=== PATIENT | female | born 1950 | race Caucasian/White ===

== ENCOUNTER 2018-01-19 10:41 | Inpatient (IN) | payer MEDICARE, BC ==
[2018-01-19] MEDS ORDERED: Amiodarone 200 MG Tab PO SCH (14:00)
[2018-01-19] MEDS: Furosemide 40 MG Tab PO SCH (16:29)
[2018-01-19] MEDS ORDERED: Warfarin Sliding Scale PO SCH (17:30)
--- NOTE | 2018-01-19 17:56 | PCM.HP ---
H&P History of Present Illness - General Date of Service: 01/19/18 Admit Problem/Dx: Admission Diagnosis/Problem Admission Diagnosis/Problem Weakness Source of Information: Patient, Old Records History Limitations: Reports: No Limitations - History of Present Illness Initial Comments - Free Text/Narative: This is a 67-year-old female patient that was transferred from 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 Mcclelland. Patient is transferred down here for rehabilitation. Her only concern is she's cough and it hurts her chest which she likes him for that. She states she had a chest x- ray yesterday and no one said anything about it. She denies fevers, chills. She has chest pain from her surgery. - Related Data Allergies/Adverse Reactions: Allergies Allergy/AdvReac Type Severity Reaction Status Date / Time flecainide Allergy Hypotension Verified 05/12/16 06:47 lisinopril Allergy Cough Verified 05/12/16 06:47 Home Medications: Home Meds Simvastatin [Zocor] 20 mg PO DAILY 05/12/15 [History] Ascorbate Calcium [Vitamin C] 500 mg PO DAILY 05/12/16 [History] Albuterol [Ventolin HFA] 2 puff IH Q4H PRN 01/19/18 [History] Amiodarone [Cordarone] 200 mg PO Q8H 01/19/18 [History] Anastrozole [Arimidex] 1 mg PO DAILY 01/19/18 [History] Carvedilol [Coreg] 6.25 mg PO Q12H 01/19/18 [History] Cholecalciferol (Vitamin D3) [Vitamin D3] 1,000 unit PO DAILY 01/19/18 [History] Docusate Sodium [Dok] 250 mg PO DAILY 01/19/18 [History] Enoxaparin Sodium [Lovenox] 100 mg SUBCUT Q12H 01/19/18 [History] Fluticasone/Vilanterol [Breo Ellipta 100-25 MCG Inhalation Kit] 1 puff IH DAILY 01/19/18 [History] Furosemide 40 mg PO BID@08,14 01/19/18 [History] Hydrocodone/Acetaminophen [[place] 10-325 Tablet] 1 tab PO Q4H PRN 01/19/18 [ History] Insulin Glarg,Human.Rec.Analog [Lantus] 45 units SUBCUT BEDTIME 01/19/18 [ History] Magnesium Oxide 400 mg PO DAILY 01/19/18 [History] Metolazone 2.5 mg PO DAILY@0600 01/19/18 [History] Multivitamin with Minerals [Multivitamins with Minerals] 1 tab PO DAILY [History] Omeprazole 20 mg PO QAM 01/19/18 [History] Warfarin Sliding Scale [Coumadin Sliding Scale] 1 ea PO ASDIRECTED 01/19/18 [ History] Past Medical History Cardiovascular History: Reports: Afib, Heart Failure, Heart Valve Replacement, High Cholesterol, Hypertension, Pacemaker, Other (See Below) (Hypertension, hyperlipidemia) Neurological History: Reports: Other (See Below) (Peripheral neuropathy) Endocrine/Metabolic History: Reports: Diabetes, Type II, Other (See Below) ( Thyroid enlargement) Oncologic (Cancer) History: Reports: Breast Social & Family History - Tobacco Use Smoking Status *Q: Never Smoker Second Hand Smoke Exposure: No - Caffeine Use Caffeine Use: Reports: Coffee - Alcohol Use Days Per Week of Alcohol Use: 3 Number of Drinks Per Day: 2 Total Drinks Per Week: 6 - Recreational Drug Use Recreational Drug Use: No H&P Review of Systems - Review of Systems: Review Of Systems: See Below General: Reports: No Symptoms HEENT: Reports: No Symptoms Pulmonary: Denies: Shortness of Breath, Wheezing, Cough, Sputum Cardiovascular: Reports: Chest Pain. Denies: Palpitations, Orthopnea, PND, Edema Gastrointestinal: Reports: No Symptoms Genitourinary: Reports: No Symptoms Musculoskeletal: Reports: No Symptoms Skin: Reports: No Symptoms Psychiatric: Reports: No Symptoms Neurological: Reports: No Symptoms Hematologic/Lymphatic: Reports: No Symptoms Immunologic: Reports: No Symptoms Exam - Exam Exam: See Below - Vital Signs Vital Signs: Last Vital Signs Temp 97.4 F 01/19/18 13:15 Pulse 85 01/19/18 13:15 Resp 16 01/19/18 13:15 BP 111/66 01/19/18 13:15 Pulse Ox 94 L 01/19/18 13:15 Weight: 246 lb 3.2 oz - Exam General: Alert, Oriented, Cooperative HEENT: Hearing Intact, Posterior Pharynx Clear, TMs Clear Neck: Supple, Trachea Midline Lungs: Clear to Auscultation, Normal Respiratory Effort. No: Crackles, Rales, Rhonchi, Rub Cardiovascular: Regular Rate, Regular Rhythm, Normal S1, Normal S2, Systolic Murmur GI/Abdominal Exam: Normal Bowel Sounds, Soft, No Organomegaly, No Distention, No Abnormal Bruit, No Mass Back Exam: Normal Inspection Extremities: Normal Inspection, Normal Range of Motion, Non-Tender, No Pedal Edema Skin: Warm, Dry, Intact Neurological: Normal Speech, Normal Tone Neuro Extensive - Mental Status: Oriented x3, Normal Mood/Affect, Normal Cognition, Memory Intact *Q Meaningful Use (ADM) - VTE *Q VTE Criteria *Q: - Stroke *Q Stroke Criteria *Q: - AMI *Q AMI Criteria *Q: - Problem List (1) Status post aortic valve replacement Status: Acute Current Visit: Yes (2) Diabetes type 2, controlled SNOMED Code(s): 76827394 ICD Code: E11.9 - TYPE 2 DIABETES MELLITUS WITHOUT COMPLICATIONS Status: Acute Current Visit: Yes Problem List Initiated/Reviewed/Updated: Yes Orders Last 24hrs: Active Orders 24 hr Category Date Time Status Admission Status [Patient Status] [ADT] Routine ADT 01/19/18 12:37 Active Activity as Tolerated [RC] .Routine Care 01/19/18 12:37 Active Blood Glucose Check, Bedside [RC] QIDACANDBED Care 01/19/18 16:22 Active IS (RT) [RT Incentive Spirometry] [RC] Q2HWA Care 01/19/18 17:21 Active Wound Care [RC] 00,08,16 Care 01/19/18 12:37 Active OT Evaluation and Treatment [CONS] Routine Cons 01/19/18 13:00 Active PT Evaluation and Treatment [CONS] Routine Cons 01/19/18 13:00 Active Carbohydrate Counting [Consistent Carbohydrate Diet] [ Diet 01/19/18 Dinner Active DIET] Cardiac Diet [Heart Healthy Diet] [DIET] Diet 01/19/18 Dinner Active BASIC METABOLIC PANEL,BMP [CHEM] Routine Lab 02/22/18 06:00 Ordered CBC WITH AUTO DIFF [HEME] Routine Lab 02/22/18 06:00 Ordered INR,PT,PROTHROMBIN TIME [COAG] Routine Lab 01/20/18 06:00 Ordered Acetaminophen/HYDROcodone [[place] 325-10 MG] Med 01/19/18 17:30 Active 1 tab PO Q4H PRN Albuterol [Ventolin HFA] Med 01/19/18 17:30 Ordered DOSE gm INH Q4H PRN Amiodarone [Cordarone] Med 01/19/18 14:00 Active 200 mg PO Q8H Amiodarone [Cordarone] Med 01/19/18 17:30 Ordered 200 mg PO Q8H Anastrozole [Arimidex] Med 01/20/18 09:00 Active 1 mg PO DAILY Ascorbate Calcium [Vitamin C] Med 01/20/18 09:00 Ordered 500 mg PO DAILY Carvedilol [Coreg] Med 01/19/18 17:30 Ordered 6.25 mg PO Q12H Cholecalciferol (Vitamin D3) [Vitamin D3] Med 01/20/18 09:00 Active 1,000 units PO DAILY Docusate Sodium [Dok] Med 01/20/18 09:00 Active 250 mg PO DAILY Enoxaparin [Lovenox] Med 01/19/18 17:30 Ordered 100 mg SUBCUT Q12H Fluticasone/Vilanterol [Breo Ellipta 100-25 MCG Med 01/20/18 09:00 Ordered Inhalation Kit] 1 puff IH DAILY Furosemide [Lasix] Med 01/20/18 08:00 Active 40 mg PO BID@08,14 Furosemide [Lasix] Med 01/19/18 15:00 Active 40 mg PO BIDDIURETIC Insulin Glarg,Human.Rec.Analog [Lantus] Med 01/19/18 21:00 Ordered 45 units SUBCUT BEDTIME Magnesium Oxide Med 01/20/18 09:00 Ordered 400 mg PO DAILY Metolazone [Zaroxolyn] Med 01/20/18 06:00 Ordered 2.5 mg PO DAILY@0600 Multivitamin with Minerals [Multivitamins with Minerals Med 01/20/18 09:00 Ordered ] 1 tab PO DAILY Omeprazole [Omeprazole] Med 01/20/18 06:00 Ordered 20 mg PO QAM Simvastatin [Zocor] Med 01/20/18 09:00 Ordered 20 mg PO DAILY Warfarin Sliding Scale [Coumadin Sliding Scale] Med 01/19/18 17:30 Ordered 1 each PO ASDIRECTED Code Status [Resuscitation Status] Routine Resus Stat 01/19/18 14:24 Ordered Medication Orders Hydrocodone Bitart/Acetaminophen ([place] 325-10 Mg) 1 tab PO Q4H PRN PRN Reason: MODERATE PAIN Albuterol (Ventolin Hfa) gm INH Q4H PRN PRN Reason: SHORTNESS OF BREATH/WHEEZING Amiodarone HCl (Cordarone) 200 mg PO Q8H [facility] Stop: 01/22/18 14:01 Last Admin: 01/19/18 16:29 Dose: 200 mg Amiodarone HCl (Cordarone) 200 mg PO Q8H [facility] Anastrozole (Arimidex) 1 mg PO DAILY [facility] Carvedilol (Coreg) 6.25 mg PO Q12H [facility] Cholecalciferol (Vitamin D3) 1,000 units PO DAILY [facility] Docusate Sodium (Dok) 250 mg PO DAILY [facility] Enoxaparin Sodium (Lovenox) 100 mg SUBCUT Q12H [facility] Furosemide (Lasix) 40 mg PO BIDDIURETIC [facility] Last Admin: 01/19/18 16:29 Dose: 40 mg Furosemide (Lasix) 40 mg PO BID@08,14 [facility] Magnesium Oxide (Magnesium Oxide) 400 mg PO DAILY [facility] Metolazone (Zaroxolyn) 2.5 mg PO DAILY@0600 [facility] Non-Formulary Medication (Ascorbate Calcium [Vitamin C]) 500 mg PO DAILY [facility] Non-Formulary Medication (Fluticasone/Vilanterol [Breo Ellipta 100-25 Mcg Inhalation Kit]) 1 puff IH DAILY [facility] Non-Formulary Medication (Insulin Glarg,Human.Rec.Analog [Lantus]) 45 units SUBCUT BEDTIME [facility] Non-Formulary Medication (Multivitamin With Minerals [Multivitamins With Minerals]) 1 tab PO DAILY [facility] Non-Formulary Medication (Omeprazole [Omeprazole]) 20 mg PO QAM [facility] Simvastatin (Zocor) 20 mg PO DAILY [facility] Warfarin Sodium (Coumadin Sliding Scale) 1 each PO ASDIRECTED [facility] Assessment/Plan Comment:: 1. Admit to swing bed. See swing bed orders. 2. Robitussin for when necessary cough. 3. PT/OT. 4. Cardiac diet.
[2018-01-19] MEDS: Amiodarone 200 MG Tab PO SCH (18:46)
[2018-01-19] MEDS: Acetaminophen/HYDROcodone 325-10 MG Tab PO PRN (18:51)
[2018-01-19] MEDS: guaiFENesin 100 MG/5 ML Soln 5 ML UD Cup PO PRN (18:51)
[2018-01-19] MEDS: Albuterol 8 GM Inhaler INH PRN (19:35)
[2018-01-19] MEDS: Insulin Detemir 100 Units/ML 3 ML Pen SUBCUT SCH (21:32)
[2018-01-19] MEDS: Carvedilol 6.25 MG Tab PO SCH (21:34)
[2018-01-19] MEDS ORDERED: Enoxaparin 100 MG/1 ML Syringe SUBCUT SCH (22:00)
[2018-01-20] MEDS: Acetaminophen/HYDROcodone 325-10 MG Tab PO PRN ×5 (01:10→20:13)
[2018-01-20] MEDS: Amiodarone 200 MG Tab PO SCH ×3 (02:21→17:27)
[2018-01-20] MEDS: Pantoprazole 40 MG Tab.CR PO SCH (06:17)
[2018-01-20] MEDS: Metolazone 2.5 MG Tab PO SCH (06:17)
[2018-01-20] MEDS ORDERED: Formoterol/Mometasone 100-5 MCG 8.8 GM Inhaler IH SCH (09:00)
[2018-01-20] MEDS: Furosemide 40 MG Tab PO SCH ×3 (09:09→14:48)
[2018-01-20] MEDS: Docusate Sodium 250 MG Cap PO SCH (09:10)
[2018-01-20] MEDS: Magnesium Oxide 400 MG Tab PO SCH (09:10)
[2018-01-20] MEDS: Formoterol/Mometasone 100-5 MCG 8.8 GM Inhaler IH SCH ×2 (09:10→21:04)
[2018-01-20] MEDS: Ascorbic Acid 500 MG Tab PO SCH (09:11)
[2018-01-20] MEDS: Simvastatin 20 MG Tab PO SCH (09:11)
[2018-01-20] MEDS: Multivitamin Tab PO SCH (09:11)
[2018-01-20] MEDS: Cholecalciferol (Vitamin D3) 1,000 Unit Tab PO SCH (09:11)
[2018-01-20] MEDS: Albuterol 8 GM Inhaler INH PRN (09:12)
[2018-01-20] MEDS: Anastrozole 1 MG Tab PO SCH (09:14)
[2018-01-20] MEDS: Carvedilol 6.25 MG Tab PO SCH ×2 (10:32→21:15)
[2018-01-20] MEDS: Enoxaparin 100 MG/1 ML Syringe SUBCUT SCH ×2 (10:53→21:23)
[2018-01-20] MEDS: guaiFENesin 100 MG/5 ML Soln 5 ML UD Cup PO PRN ×2 (15:33→21:30)
[2018-01-20] MEDS ORDERED: Warfarin 10 MG Tab PO ONE (16:00)
[2018-01-20] MEDS: Insulin Detemir 100 Units/ML 3 ML Pen SUBCUT SCH (21:08)
[2018-01-21] MEDS: Acetaminophen/HYDROcodone 325-10 MG Tab PO PRN ×4 (01:05→21:15)
[2018-01-21] MEDS: Amiodarone 200 MG Tab PO SCH ×3 (02:10→17:07)
[2018-01-21] MEDS: Pantoprazole 40 MG Tab.CR PO SCH (06:07)
[2018-01-21] MEDS: Metolazone 2.5 MG Tab PO SCH (06:07)
[2018-01-21] MEDS: Furosemide 40 MG Tab PO SCH ×2 (07:48→14:11)
[2018-01-21] MEDS: Docusate Sodium 250 MG Cap PO SCH (09:28)
[2018-01-21] MEDS: Anastrozole 1 MG Tab PO SCH (09:28)
[2018-01-21] MEDS: Magnesium Oxide 400 MG Tab PO SCH (09:29)
[2018-01-21] MEDS: Multivitamin Tab PO SCH (09:29)
[2018-01-21] MEDS: Formoterol/Mometasone 100-5 MCG 8.8 GM Inhaler IH SCH ×2 (09:29→21:00)
[2018-01-21] MEDS: Simvastatin 20 MG Tab PO SCH (09:30)
[2018-01-21] MEDS: Cholecalciferol (Vitamin D3) 1,000 Unit Tab PO SCH (09:30)
[2018-01-21] MEDS: Ascorbic Acid 500 MG Tab PO SCH (09:30)
[2018-01-21] MEDS: Carvedilol 6.25 MG Tab PO SCH ×2 (09:31→21:02)
[2018-01-21] MEDS ORDERED: Warfarin 2.5 MG Tab PO ONE (16:00)
[2018-01-21] MEDS: Insulin Detemir 100 Units/ML 3 ML Pen SUBCUT SCH (21:01)
[2018-01-21] MEDS: guaiFENesin 100 MG/5 ML Soln 5 ML UD Cup PO PRN (21:12)
[2018-01-22] MEDS: Acetaminophen/HYDROcodone 325-10 MG Tab PO PRN ×5 (01:15→23:45)
[2018-01-22] MEDS: Amiodarone 200 MG Tab PO SCH ×3 (01:15→19:19)
[2018-01-22] MEDS: Metolazone 2.5 MG Tab PO SCH (06:29)
[2018-01-22] MEDS: Pantoprazole 40 MG Tab.CR PO SCH (06:29)
[2018-01-22] MEDS: Furosemide 40 MG Tab PO SCH ×2 (09:04→13:03)
[2018-01-22] MEDS: Anastrozole 1 MG Tab PO SCH (09:04)
[2018-01-22] MEDS: Formoterol/Mometasone 100-5 MCG 8.8 GM Inhaler IH SCH ×2 (09:05→20:37)
[2018-01-22] MEDS: Docusate Sodium 250 MG Cap PO SCH (09:05)
[2018-01-22] MEDS: Cholecalciferol (Vitamin D3) 1,000 Unit Tab PO SCH (09:06)
[2018-01-22] MEDS: Ascorbic Acid 500 MG Tab PO SCH (09:06)
[2018-01-22] MEDS: Multivitamin Tab PO SCH (09:07)
[2018-01-22] MEDS: Magnesium Oxide 400 MG Tab PO SCH (09:07)
[2018-01-22] MEDS: Simvastatin 20 MG Tab PO SCH (09:07)
[2018-01-22] MEDS: Polyethylene Glycol 3350 Powder 17 GM Packet PO PRN (10:13)
[2018-01-22] MEDS: Carvedilol 6.25 MG Tab PO SCH ×2 (10:14→21:05)
[2018-01-22] MEDS: Albuterol 8 GM Inhaler INH PRN (13:06)
[2018-01-22] MEDS: Enoxaparin 100 MG/1 ML Syringe SUBCUT SCH (15:37)
[2018-01-22] MEDS ORDERED: Warfarin 5 MG Tab PO ONE (16:00)
[2018-01-22] MEDS: guaiFENesin 100 MG/5 ML Soln 5 ML UD Cup PO PRN (19:22)
[2018-01-22] MEDS: Insulin Detemir 100 Units/ML 3 ML Pen SUBCUT SCH (20:37)
[2018-01-23] MEDS: Pantoprazole 40 MG Tab.CR PO SCH (05:06)
[2018-01-23] MEDS: Metolazone 2.5 MG Tab PO SCH (05:06)
[2018-01-23] MEDS: Acetaminophen/HYDROcodone 325-10 MG Tab PO PRN (06:55)
[2018-01-23] MEDS ORDERED: Magnesium Hydroxide 400 MG/5 ML Susp 30 ML Cup PO PRN (07:33)
[2018-01-23] MEDS ORDERED: Acetaminophen 325 MG Tab PO PRN ×2 (07:36→22:01)
[2018-01-23] MEDS: Furosemide 40 MG Tab PO SCH ×2 (08:42→13:15)
[2018-01-23] MEDS: Ascorbic Acid 500 MG Tab PO SCH (08:42)
[2018-01-23] MEDS: Multivitamin Tab PO SCH (08:43)
[2018-01-23] MEDS: Magnesium Oxide 400 MG Tab PO SCH (08:43)
[2018-01-23] MEDS: Cholecalciferol (Vitamin D3) 1,000 Unit Tab PO SCH (08:44)
[2018-01-23] MEDS: Formoterol/Mometasone 100-5 MCG 8.8 GM Inhaler IH SCH ×2 (08:44→20:44)
[2018-01-23] MEDS: Docusate Sodium 250 MG Cap PO SCH (08:44)
[2018-01-23] MEDS: Anastrozole 1 MG Tab PO SCH (08:45)
[2018-01-23] MEDS: Simvastatin 20 MG Tab PO SCH (08:45)
[2018-01-23] MEDS: Carvedilol 6.25 MG Tab PO SCH ×2 (09:06→21:19)
[2018-01-23] MEDS ORDERED: Potassium Chloride 20 MEQ Tab.ER PO ONE (09:13)
[2018-01-23] MEDS: Potassium Chloride 20 MEQ Tab.ER PO SCH ×2 (13:15→20:49)
[2018-01-23] MEDS ORDERED: Warfarin 5 MG Tab PO ONE (16:00)
[2018-01-23] MEDS: Insulin Detemir 100 Units/ML 3 ML Pen SUBCUT SCH (20:49)
[2018-01-23] MEDS: guaiFENesin 100 MG/5 ML Soln 5 ML UD Cup PO PRN (20:50)
[2018-01-24] MEDS: Metolazone 2.5 MG Tab PO SCH (06:30)
[2018-01-24] MEDS: Pantoprazole 40 MG Tab.CR PO SCH (06:30)
[2018-01-24] MEDS: Furosemide 40 MG Tab PO SCH ×2 (09:24→15:15)
[2018-01-24] MEDS: Anastrozole 1 MG Tab PO SCH (09:24)
[2018-01-24] MEDS: Formoterol/Mometasone 100-5 MCG 8.8 GM Inhaler IH SCH ×2 (09:24→20:22)
[2018-01-24] MEDS: Docusate Sodium 250 MG Cap PO SCH (09:24)
[2018-01-24] MEDS: Potassium Chloride 20 MEQ Tab.ER PO SCH ×3 (09:25→20:22)
[2018-01-24] MEDS: Carvedilol 6.25 MG Tab PO SCH ×2 (09:25→22:00)
[2018-01-24] MEDS: Cholecalciferol (Vitamin D3) 1,000 Unit Tab PO SCH (09:25)
[2018-01-24] MEDS: Magnesium Oxide 400 MG Tab PO SCH (09:25)
[2018-01-24] MEDS: Simvastatin 20 MG Tab PO SCH (09:25)
[2018-01-24] MEDS: Multivitamin Tab PO SCH (09:26)
[2018-01-24] MEDS: traMADol 50 MG Tab PO PRN (09:26)
[2018-01-24] MEDS: Ascorbic Acid 500 MG Tab PO SCH (09:26)
[2018-01-24] MEDS: Spironolactone 50 MG Tab PO SCH (09:32)
--- NOTE | 2018-01-24 10:01 | PN ---
DATE SEEN: 01/24/2018 CHIEF COMPLAINT: 1. Alteration of mental status. 2. Hypokalemia. HISTORY OF PRESENT ILLNESS: A 67-year-old female who was in swing bed for rehab after an aortic valve repair. Over the last couple nights, she had complained of some hallucinations that were noted by the nursing staff. Yesterday, I ordered electrolyte panel that showed potassium of 2.5, and despite replacement she is still at 2.5 today. She is on Lasix 40 mg twice a day and metolazone 2.5 mg a day. I also stopped hydrocodone, which she was taking for chest wall pain after the surgery and she complains of pain around the chest wall area on the right side. REVIEW OF SYSTEMS: She has no fever or chills. No headaches. She feels very weak. SOCIAL HISTORY: Does not smoke. PAST MEDICAL HISTORY: Please see the [email or web address] and Medicare problem list. PHYSICAL EXAMINATION: GENERAL: She is not in distress. She appears lethargic. VITAL SIGNS: Latest blood pressure is 113/60 and pulse is 81. She has a temp of 97.3. ENT: Negative. Head, normal size. NECK: Supple. CHEST: Chest wall appeared with normal thoracotomy scar. No signs of infection. LUNGS: End- expiratory rhonchi. MENTAL STATUS: Alert. EXTREMITIES: Marked nonpitting peripheral edema. LABORATORY DATA: As mentioned above, 2.5 was the potassium and sodium was 132. IMPRESSION: 1. Chest wall pain, status post mitral valve repair and aortic valve repair. 2. Delirium, unknown reason. 3. Hypokalemia. 4. Congestive heart failure. PLAN: 1. Continue potassium replacement up to 60 mEq a day. 2. Discontinue metolazone in favor of Aldactone 50 mg once a day. 3. Start Ultram 1 tablet 50 mg 3 times a day p.r.n. for chest wall pain. 4. Continue physical therapy and rehab. 5. Check electrolytes daily. 6. Sodium is also about 132 and I recommend restricting free water to less than a 1000 a day. /[id number] CHARO/MARCIAL
[2018-01-24] MEDS: Polyethylene Glycol 3350 Powder 17 GM Packet PO PRN (15:17)
[2018-01-24] MEDS: Warfarin 5 MG Tab PO SCH (16:21)
[2018-01-24] MEDS ORDERED: Bisacodyl 10 MG Supp RECTAL PRN (16:35)
[2018-01-24] MEDS: Insulin Detemir 100 Units/ML 3 ML Pen SUBCUT SCH (20:29)
[2018-01-25] MEDS ORDERED: Sodium Phosphate,Monobasic/Sodium Phosphate,Dibasic Enema 133 ML Bottle RECTAL ONE (02:00)
[2018-01-25] MEDS: Pantoprazole 40 MG Tab.CR PO SCH (05:56)
[2018-01-25] MEDS: Spironolactone 50 MG Tab PO SCH (08:59)
[2018-01-25] MEDS: Cholecalciferol (Vitamin D3) 1,000 Unit Tab PO SCH (08:59)
[2018-01-25] MEDS: Potassium Chloride 20 MEQ Tab.ER PO SCH ×3 (08:59→20:45)
[2018-01-25] MEDS: Multivitamin Tab PO SCH (08:59)
[2018-01-25] MEDS: Magnesium Oxide 400 MG Tab PO SCH (08:59)
[2018-01-25] MEDS: Simvastatin 20 MG Tab PO SCH (08:59)
[2018-01-25] MEDS: Ascorbic Acid 500 MG Tab PO SCH (08:59)
[2018-01-25] MEDS: Docusate Sodium 250 MG Cap PO SCH (08:59)
[2018-01-25] MEDS: Anastrozole 1 MG Tab PO SCH (08:59)
[2018-01-25] MEDS: Furosemide 40 MG Tab PO SCH ×2 (08:59→13:28)
[2018-01-25] MEDS: Formoterol/Mometasone 100-5 MCG 8.8 GM Inhaler IH SCH ×2 (09:00→20:45)
[2018-01-25] MEDS: Carvedilol 6.25 MG Tab PO SCH ×2 (09:00→21:11)
[2018-01-25] MEDS: Warfarin 5 MG Tab PO SCH (16:36)
[2018-01-25] MEDS: Insulin Detemir 100 Units/ML 3 ML Pen SUBCUT SCH (20:45)
[2018-01-26] MEDS: Pantoprazole 40 MG Tab.CR PO SCH (05:51)
[2018-01-26] MEDS: Furosemide 40 MG Tab PO SCH ×2 (07:42→13:40)
[2018-01-26] MEDS: Spironolactone 50 MG Tab PO SCH (08:16)
[2018-01-26] MEDS: Docusate Sodium 250 MG Cap PO SCH (08:17)
[2018-01-26] MEDS: Cholecalciferol (Vitamin D3) 1,000 Unit Tab PO SCH (08:17)
[2018-01-26] MEDS: Ascorbic Acid 500 MG Tab PO SCH (08:17)
[2018-01-26] MEDS: Multivitamin Tab PO SCH (08:17)
[2018-01-26] MEDS: Potassium Chloride 20 MEQ Tab.ER PO SCH ×3 (08:17→21:07)
[2018-01-26] MEDS: Formoterol/Mometasone 100-5 MCG 8.8 GM Inhaler IH SCH ×2 (08:17→21:07)
[2018-01-26] MEDS: Anastrozole 1 MG Tab PO SCH (08:17)
[2018-01-26] MEDS: Simvastatin 20 MG Tab PO SCH (08:17)
[2018-01-26] MEDS: Magnesium Oxide 400 MG Tab PO SCH (08:17)
[2018-01-26] MEDS: Carvedilol 6.25 MG Tab PO SCH ×2 (10:10→21:09)
[2018-01-26] MEDS: Warfarin 5 MG Tab PO SCH (16:33)
[2018-01-26] MEDS: Insulin Detemir 100 Units/ML 3 ML Pen SUBCUT SCH (21:11)
[2018-01-26] MEDS: hydrOXYzine HCl 25 MG Tab PO PRN (23:59)
[2018-01-27] MEDS: Pantoprazole 40 MG Tab.CR PO SCH (05:11)
[2018-01-27] MEDS: Furosemide 40 MG Tab PO SCH ×2 (08:28→14:44)
[2018-01-27] MEDS: Multivitamin Tab PO SCH (08:28)
[2018-01-27] MEDS: Cholecalciferol (Vitamin D3) 1,000 Unit Tab PO SCH (08:29)
[2018-01-27] MEDS: Simvastatin 20 MG Tab PO SCH (08:29)
[2018-01-27] MEDS: Magnesium Oxide 400 MG Tab PO SCH (08:29)
[2018-01-27] MEDS: Anastrozole 1 MG Tab PO SCH (08:29)
[2018-01-27] MEDS: Docusate Sodium 250 MG Cap PO SCH (08:29)
[2018-01-27] MEDS: Formoterol/Mometasone 100-5 MCG 8.8 GM Inhaler IH SCH ×2 (08:29→20:08)
[2018-01-27] MEDS: Ascorbic Acid 500 MG Tab PO SCH (08:29)
[2018-01-27] MEDS: Spironolactone 50 MG Tab PO SCH (08:29)
[2018-01-27] MEDS: Potassium Chloride 20 MEQ Tab.ER PO SCH ×3 (08:30→20:09)
[2018-01-27] MEDS ORDERED: Metolazone 2.5 MG Tab PO ONE (09:15)
[2018-01-27] MEDS: Carvedilol 6.25 MG Tab PO SCH ×2 (10:47→21:15)
[2018-01-27] MEDS: Warfarin 5 MG Tab PO SCH (15:39)
[2018-01-27] MEDS: Insulin Detemir 100 Units/ML 3 ML Pen SUBCUT SCH (20:11)
[2018-01-27] MEDS: hydrOXYzine HCl 25 MG Tab PO PRN (21:18)
[2018-01-28] MEDS: Pantoprazole 40 MG Tab.CR PO SCH (04:59)
[2018-01-28] MEDS: Furosemide 40 MG Tab PO SCH ×2 (08:17→14:21)
[2018-01-28] MEDS: Docusate Sodium 250 MG Cap PO SCH (08:59)
[2018-01-28] MEDS: Spironolactone 50 MG Tab PO SCH (08:59)
[2018-01-28] MEDS: Anastrozole 1 MG Tab PO SCH (08:59)
[2018-01-28] MEDS: Formoterol/Mometasone 100-5 MCG 8.8 GM Inhaler IH SCH ×2 (08:59→20:20)
[2018-01-28] MEDS: Multivitamin Tab PO SCH (09:00)
[2018-01-28] MEDS: Magnesium Oxide 400 MG Tab PO SCH (09:00)
[2018-01-28] MEDS: Cholecalciferol (Vitamin D3) 1,000 Unit Tab PO SCH (09:00)
[2018-01-28] MEDS: Ascorbic Acid 500 MG Tab PO SCH (09:00)
[2018-01-28] MEDS: Simvastatin 20 MG Tab PO SCH (09:00)
[2018-01-28] MEDS: Potassium Chloride 20 MEQ Tab.ER PO SCH ×3 (09:00→20:20)
[2018-01-28] MEDS: Carvedilol 6.25 MG Tab PO SCH ×2 (10:33→21:26)
[2018-01-28] MEDS: traMADol 50 MG Tab PO PRN (10:37)
[2018-01-28] MEDS ORDERED: Warfarin 5 MG, Warfarin 2.5 MG PO SCH ×2 (16:00)
--- NOTE | 2018-01-28 19:46 | PCM.PN ---
- General Info Date of Service: 01/28/18 Subjective Update: Patient is a 67-year-old female status post multiple valves replaced/repaired in [place] admitted here for swing bed rehabilitation on 01/19/18. She is doing well. Pain is well controlled. She has significant pedal edema from systolic congestive heart failure due to her valvular disease which has improved somewhat over the last few days. She's not having any shortness of breath. No nausea, vomiting, or diarrhea. She is interested in getting off insulin and back on her oral agents. Hemoglobin A1c was 8.4% in November on glipizide and metformin both twice a day. Glipizide was 5 mg and metformin 1000 mg. - Patient Data Vitals - Most Recent: Last Vital Signs Temp 36.6 C 01/28/18 08:00 Pulse 86 01/28/18 08:00 Resp 16 01/28/18 08:00 BP 105/58 L 01/28/18 10:33 Pulse Ox 95 01/28/18 08:00 Weight - Most Recent: 103.873 kg Lab Results Last 24 Hours: Laboratory Results - last 24 hr 01/27/18 01/28/18 01/28/18 Range/Units 20:07 04:58 06:50 PT 30.2 H (8.7-11.1) INR 2.93 H (0.89-1.13) Sodium (135-145) mmol/L Potassium (3.5-5.3) mmol/L Chloride (100-110) mmol/L Carbon Dioxide (21-32) mmol/L BUN (7-18) mg/dL Creatinine (0.55-1.02) mg/dL Est Cr Clr Drug Dosing mL/min Estimated GFR (MDRD) (>60) BUN/Creatinine Ratio (9-20) Glucose (80-116) mg/dL POC Glucose 284 H 153 H D (80-116) mg/dL Calcium (8.6-10.2) mg/dL NT-Pro-B Natriuret Pep (<=125) pg/mL 01/28/18 01/28/18 01/28/18 Range/Units 06:50 06:50 11:15 PT (8.7-11.1) INR (0.89-1.13) Sodium 137 (135-145) mmol/L Potassium 3.4 L (3.5-5.3) mmol/L Chloride 95 L (100-110) mmol/L Carbon Dioxide 33 H (21-32) mmol/L BUN 31 H (7-18) mg/dL Creatinine 1.1 H (0.55-1.02) mg/dL Est Cr Clr Drug Dosing 51.15 mL/min Estimated GFR (MDRD) 49 L (>60) BUN/Creatinine Ratio 28.2 H (9-20) Glucose 154 H (80-116) mg/dL POC Glucose 286 H D (80-116) mg/dL Calcium 9.3 (8.6-10.2) mg/dL NT-Pro-B Natriuret Pep 5337 H* (<=125) pg/mL 01/28/18 Range/Units 17:13 PT (8.7-11.1) INR (0.89-1.13) Sodium (135-145) mmol/L Potassium (3.5-5.3) mmol/L Chloride (100-110) mmol/L Carbon Dioxide (21-32) mmol/L BUN (7-18) mg/dL Creatinine (0.55-1.02) mg/dL Est Cr Clr Drug Dosing mL/min Estimated GFR (MDRD) (>60) BUN/Creatinine Ratio (9-20) Glucose (80-116) mg/dL POC Glucose 232 H (80-116) mg/dL Calcium (8.6-10.2) mg/dL NT-Pro-B Natriuret Pep (<=125) pg/mL Med Orders - Current: Current Medications Albuterol (Ventolin Hfa) 0 gm INH Q4H PRN PRN Reason: SHORTNESS OF BREATH/WHEEZING Last Admin: 01/22/18 13:06 Dose: 2 puff Anastrozole (Arimidex) 1 mg PO DAILY [facility] Last Admin: 01/28/18 08:59 Dose: 1 mg Ascorbic Acid (Vitamin C) 500 mg PO DAILY [facility] Last Admin: 01/28/18 09:00 Dose: 500 mg Bisacodyl (Dulcolax) 10 mg RECTAL DAILY PRN PRN Reason: Constipation Last Admin: 01/24/18 17:18 Dose: 10 mg Carvedilol (Coreg) 6.25 mg PO Q12H [facility] Last Admin: 01/28/18 10:33 Dose: 6.25 mg Cholecalciferol (Vitamin D3) 1,000 units PO DAILY [facility] Last Admin: 01/28/18 09:00 Dose: 1,000 units Docusate Sodium (Dok) 250 mg PO DAILY [facility] Last Admin: 01/28/18 08:59 Dose: 250 mg Furosemide (Lasix) 40 mg PO BID@08,14 [facility] Last Admin: 01/28/18 14:21 Dose: 40 mg Guaifenesin (Robitussin) 100 mg PO Q4H PRN PRN Reason: Cough Last Admin: 01/23/18 20:50 Dose: 100 mg Hydroxyzine HCl (Atarax) 25 mg PO BEDTIME PRN PRN Reason: rest Last Admin: 01/27/18 21:18 Dose: 25 mg Insulin Detemir (Levemir) 45 unit SUBCUT BEDTIME [facility] Last Admin: 01/27/18 20:11 Dose: 45 units Magnesium Hydroxide (Milk Of Magnesia) 30 ml PO DAILY PRN PRN Reason: Constipation Last Admin: 01/23/18 08:41 Dose: 30 ml Magnesium Oxide (Magnesium Oxide) 400 mg PO DAILY [facility] Last Admin: 01/28/18 09:00 Dose: 400 mg Metolazone (Zaroxolyn) 2.5 mg PO Q48H [facility] Mometasone Furoate/Formoterol Fumar (Dulera 100-5 Mcg) 2 puff IH BID [facility] Last Admin: 01/28/18 08:59 Dose: 2 puff Multivitamins/Minerals/Vitamin C (Tab-A-Cleo) 1 tab PO DAILY [facility] Last Admin: 01/28/18 09:00 Dose: 1 tab Pantoprazole Sodium (Protonix) 40 mg PO QAM [facility] Last Admin: 01/28/18 04:59 Dose: 40 mg Polyethylene Glycol (Miralax) 17 gm PO DAILY PRN PRN Reason: Constipation Last Admin: 01/24/18 15:17 Dose: 17 gm Potassium Chloride (Klor-Con M20) 20 meq PO TID [facility] Last Admin: 01/28/18 14:21 Dose: 20 meq Simvastatin (Zocor) 20 mg PO DAILY [facility] Last Admin: 01/28/18 09:00 Dose: 20 mg Spironolactone (Aldactone) 50 mg PO DAILY [facility] Last Admin: 01/28/18 08:59 Dose: 50 mg Tramadol HCl (Ultram) 50 mg PO Q8H PRN PRN Reason: Breakthrough Pain Last Admin: 01/28/18 10:37 Dose: 50 mg Warfarin Sodium (Coumadin Sliding Scale) 1 each PO ASDIRECTED [facility] Warfarin Sodium 5 mg/ Warfarin (Sodium 2.5 mg) 7.5 mg PO Fr@1600 [facility] Stop: 02/04/18 16:01 Last Admin: 01/28/18 16:33 Dose: 7.5 mg Warfarin Sodium (Coumadin) 5 mg PO SuMoTuWeThSa@1600 [facility] Stop: 02/03/18 16:01 Discontinued Medications Acetaminophen (Tylenol) 650 mg PO Q4H PRN PRN Reason: Pain Hydrocodone Bitart/Acetaminophen ([place] 325-10 Mg) 1 tab PO Q4H PRN PRN Reason: MODERATE PAIN Last Admin: 01/23/18 06:55 Dose: 1 tab Amiodarone HCl (Cordarone) 200 mg PO Q8H [facility] Stop: 01/22/18 14:01 Last Admin: 01/19/18 16:29 Dose: 200 mg Amiodarone HCl (Cordarone) 200 mg PO Q8H [facility] Last Admin: 01/20/18 02:21 Dose: 200 mg Amiodarone HCl (Cordarone) 200 mg PO Q8H [facility] Stop: 01/22/18 18:01 Last Admin: 01/22/18 19:19 Dose: 200 mg Enoxaparin Sodium (Lovenox) 100 mg SUBCUT Q12H [facility] Last Admin: 01/22/18 15:37 Dose: Not Given Enoxaparin Sodium (Lovenox) 100 mg SUBCUT Q12H [facility] Stop: 01/19/18 22:01 Last Admin: 01/19/18 21:34 Dose: 100 mg Furosemide (Lasix) 40 mg PO BIDDIURETIC [facility] Last Admin: 01/20/18 09:27 Dose: Not Given Insulin Detemir (Levemir) 45 unit SUBCUT BEDTIME [facility] Last Admin: 01/25/18 20:45 Dose: 45 unit Metolazone (Zaroxolyn) 2.5 mg PO DAILY@0600 [facility] Last Admin: 01/24/18 06:30 Dose: 2.5 mg Metolazone (Zaroxolyn) 2.5 mg PO ONETIME ONE Stop: 01/27/18 09:16 Last Admin: 01/27/18 10:47 Dose: 2.5 mg Mometasone Furoate/Formoterol Fumar (Dulera 100-5 Mcg) 2 puff IH BID [facility] Potassium Chloride (Klor-Con M20) 40 meq PO ONETIME ONE Stop: 01/23/18 09:14 Last Admin: 01/23/18 09:46 Dose: 40 meq Sodium Biphosphate/Sodium Phosphate (Fleet Enema) 133 ml RECTAL ONETIME ONE Stop: 01/25/18 02:01 Last Admin: 01/25/18 02:00 Dose: 133 ml Warfarin Sodium (Coumadin) 10 mg PO ONETIME ONE Stop: 01/20/18 16:01 Last Admin: 01/20/18 16:12 Dose: 10 mg Warfarin Sodium (Coumadin) 7.5 mg PO ONETIME [facility] Stop: 01/21/18 16:01 Last Admin: 01/21/18 16:43 Dose: 7.5 mg Warfarin Sodium (Coumadin) 5 mg PO DAILY@1600 [facility] Stop: 01/22/18 16:01 Last Admin: 01/22/18 15:55 Dose: 5 mg Warfarin Sodium (Coumadin) 5 mg PO DAILY@1600 [facility] Stop: 01/23/18 16:01 Last Admin: 01/23/18 16:30 Dose: 5 mg Warfarin Sodium (Coumadin) 5 mg PO DAILY@1600 [facility] Stop: 01/25/18 17:00 Last Admin: 01/25/18 16:36 Dose: 5 mg Warfarin Sodium (Coumadin) 5 mg PO DAILY@1600 [facility] Stop: 01/27/18 17:00 Last Admin: 01/27/18 15:39 Dose: 5 mg - Exam General: Alert, Oriented, Cooperative, No Acute Distress HEENT: Pupils Equal, Pupils Reactive Neck: Supple Lungs: Clear to Auscultation, Normal Respiratory Effort Cardiovascular: Regular Rate, Regular Rhythm (Audible valve click. No murmurs.) GI/Abdominal Exam: Normal Bowel Sounds Extremities: Pedal Edema (Legs are wrapped but edema appears to be 2+.) - Problem List & Annotations (1) Weakness SNOMED Code(s): 95727110 Code(s): R53.1 - WEAKNESS Status: Acute Current Visit: Yes Annotation/ Comment:: PT and OT to continue to follow. It sounds like patient will be ready for discharge next week. (2) Systolic CHF, chronic SNOMED Code(s): 197147710 Code(s): I50.22 - CHRONIC SYSTOLIC (CONGESTIVE) HEART FAILURE Status: Acute Current Visit: Yes Annotation/Comment:: Still a significant fluid overload suggestive of right-sided heart failure. Patient is currently on Lasix 40 mg twice a day and metolazone 2.5 mg every other day. Continue to monitor fluid status. External wrap will help fluid return to the heart. Spironolactone was also started. Will monitor BMP. (3) Diabetes type 2, controlled SNOMED Code(s): 43636268 Code(s): E11.9 - TYPE 2 DIABETES MELLITUS WITHOUT COMPLICATIONS Status: Acute Current Visit: Yes Annotation/Comment:: Currently not well controlled. Last hemoglobin A1c was 8.4% which is not at goal and the patient's blood sugars have been for the most part over 200 which is not adequate to promote good wound healing. I suggested that we restart patient's metformin at 500 mg twice daily tomorrow and see how she tolerates this from a GI standpoint. We'll continue insulin for now. Monitor blood sugars for Lows. (4) Status post aortic valve replacement Status: Acute Current Visit: Yes (5) Insomnia SNOMED Code(s): 606188584 Code(s): G47.00 - INSOMNIA, UNSPECIFIED Status: Acute Current Visit: Yes Annotation/Comment:: Will try eleuterio arora. - Problem List Review Problem List Initiated/Reviewed/Updated: Yes - My Orders Last 24 Hours: My Active Orders 01/28/18 16:00 Warfarin [Coumadin] 7.5 mg PO Fr@159901/29/18 16:00 Warfarin [Coumadin] 5 mg PO SuMoTuWeThSa@1600 02/04/18 06:00 INR,PT,PROTHROMBIN TIME [COAG] Routine
[2018-01-28] MEDS ORDERED: Zolpidem 5 MG Tab PO PRN (20:01)
[2018-01-28] MEDS: Insulin Detemir 100 Units/ML 3 ML Pen SUBCUT SCH (20:20)
[2018-01-29] MEDS: Metolazone 2.5 MG Tab PO SCH (05:31)
[2018-01-29] MEDS: Pantoprazole 40 MG Tab.CR PO SCH (05:31)
[2018-01-29] MEDS: Furosemide 40 MG Tab PO SCH ×2 (08:41→14:32)
[2018-01-29] MEDS: Docusate Sodium 250 MG Cap PO SCH (08:42)
[2018-01-29] MEDS: Potassium Chloride 20 MEQ Tab.ER PO SCH ×3 (08:42→21:19)
[2018-01-29] MEDS: Spironolactone 50 MG Tab PO SCH (08:42)
[2018-01-29] MEDS: Magnesium Oxide 400 MG Tab PO SCH (08:42)
[2018-01-29] MEDS: Formoterol/Mometasone 100-5 MCG 8.8 GM Inhaler IH SCH ×2 (08:42→21:18)
[2018-01-29] MEDS: Anastrozole 1 MG Tab PO SCH (08:42)
[2018-01-29] MEDS: Ascorbic Acid 500 MG Tab PO SCH (08:43)
[2018-01-29] MEDS: Multivitamin Tab PO SCH (08:43)
[2018-01-29] MEDS: Simvastatin 20 MG Tab PO SCH (08:43)
[2018-01-29] MEDS: Cholecalciferol (Vitamin D3) 1,000 Unit Tab PO SCH (08:43)
[2018-01-29] MEDS: metFORMIN 500 MG Tab.ER PO SCH ×2 (08:51→17:45)
[2018-01-29] MEDS: Carvedilol 6.25 MG Tab PO SCH ×2 (09:55→21:19)
[2018-01-29] MEDS: traMADol 50 MG Tab PO PRN ×2 (11:14→21:42)
[2018-01-29] MEDS: Warfarin 5 MG Tab PO SCH (16:33)
[2018-01-29] MEDS: Insulin Detemir 100 Units/ML 3 ML Pen SUBCUT SCH (21:28)
[2018-01-30] MEDS: Pantoprazole 40 MG Tab.CR PO SCH (06:13)
[2018-01-30] MEDS: metFORMIN 500 MG Tab.ER PO SCH ×3 (06:17→17:00)
[2018-01-30] MEDS: Furosemide 40 MG Tab PO SCH ×2 (08:16→14:27)
[2018-01-30] MEDS: Multivitamin Tab PO SCH (08:16)
[2018-01-30] MEDS: Spironolactone 50 MG Tab PO SCH (08:16)
[2018-01-30] MEDS: Magnesium Oxide 400 MG Tab PO SCH (08:16)
[2018-01-30] MEDS: Docusate Sodium 250 MG Cap PO SCH (08:16)
[2018-01-30] MEDS: Simvastatin 20 MG Tab PO SCH (08:16)
[2018-01-30] MEDS: Cholecalciferol (Vitamin D3) 1,000 Unit Tab PO SCH (08:16)
[2018-01-30] MEDS: Anastrozole 1 MG Tab PO SCH (08:17)
[2018-01-30] MEDS: Ascorbic Acid 500 MG Tab PO SCH (08:17)
[2018-01-30] MEDS: Potassium Chloride 20 MEQ Tab.ER PO SCH ×3 (08:17→20:49)
[2018-01-30] MEDS: Formoterol/Mometasone 100-5 MCG 8.8 GM Inhaler IH SCH ×2 (08:17→20:49)
[2018-01-30] MEDS ORDERED: Insulin Detemir 100 Units/ML 3 ML Pen SUBCUT SCH (09:39)
[2018-01-30] MEDS: Carvedilol 6.25 MG Tab PO SCH ×2 (10:30→21:00)
--- NOTE | 2018-01-30 13:19 | PCM.SN ---
- Free Text/Narrative Note: Patient is a 67-year-old female currently on swing bed day #13 status post mitral valve replacement, tricuspid repair etc. Patient is doing well today. Blood sugar this morning was 123 which is the best it's been since she's been in the hospital here. Hemoglobin 9.3 which is stable since admission of 9.6. Because her metformin is now at thousand milligrams twice a day and glipizide will be restarting tomorrow, I decreased her Lantus to 30 units today. She still has significant pedal edema and she did not have her legs wrapped this morning so we discussed the importance of wrapping with Yaw wraps or using GUNJAN hose to prevent venous stasis ulcers. Labs this morning looked good with a creatinine of 1.1 and BUN of 34. Potassium was 3.9. Vital signs were stable. Patient will be discharged likely tomorrow to home. Told her that I think we should continue insulin until we see her blood sugars are adequately controlled. She may be able to add Januvia or another oral agent as an outpatient but will not do that at this time.
[2018-01-30] MEDS: Warfarin 5 MG Tab PO SCH (16:58)
[2018-01-31] MEDS: Acetaminophen 325 MG Tab PO PRN ×2 (01:24→07:36)
[2018-01-31] MEDS: Pantoprazole 40 MG Tab.CR PO SCH (06:15)
[2018-01-31] MEDS: Metolazone 2.5 MG Tab PO SCH (07:37)
--- NOTE | 2018-01-31 08:51 | PCM.DCSUM1 ---
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 Discharge diagnosis: Same Secondary diagnoses with hospital course by problem: #1 diabetes mellitus type 2. When patient came from [place] she was on 45 units Lantus at bedtime. Her metformin was restarted gradually as well as her glipizide. At discharge she was discharged on metformin 1000 mg twice a day with meals, glipizide 5 mg ER twice a day with meals, 30 units Lantus at at bedtime unless blood sugars below 140 then 15 units. [facility]. #2 congestive heart failure, echocardiogram 01/17/18 showed ejection fraction of 50% compared to prior to surgery which showed ejection fraction at 65%. This shows the patient has both diastolic and Systolic heart failure but likely will improve both. She was started on spironolactone during hospitalization due to hypokalemia and congestive heart failure but this likely will need to be stopped as patient's ejection fraction improves back to baseline. Potassium will need to be monitored closely. As her diastolic dysfunction improves after her valve replacement she will likely need her diuretics weaned. Spoke with her primary care provider Dr. Ames regarding close follow-up until the patient sees Dr. Mcclelland back on February 23, 2018. We'll need follow-up BMP and CBC at follow-up this week for medication adjustment and to follow postoperative anemia. #3 postoperative anemia. Hemoglobin on 01/23 was 9.6, on 01/30 was 9.3. #4 severe pedal edema. Patient was instructed on Yaw wraps, elevating the legs, to try to improve fluid return to the heart. Used these successfully in the hospital. NOTE: patient was started in [place] on Breo Ellipta inhaler for unknown reason. Recommended she finish the inhaler and then see if she needs it. Wade ( ther sub) sent home with her from the hospital and she will need a new rx if she stops it and needs to restart it. Likely related to her surgery so I don't believe she will need this long-term. - Discharge Data Discharge Date: 01/31/18 Discharge Disposition: Home, Self-Care 01 Condition: Good - Discharge Diagnosis/Problem(s) (1) Weakness SNOMED Code(s): 75212873 ICD Code: R53.1 - WEAKNESS Status: Acute Current Visit: Yes Problem Details: Patient did very well with physical therapy and occupational therapy while hospitalized. She still on significant lifting restrictions but is able to ambulate without difficulty. Declined home health services. (2) Systolic CHF, chronic SNOMED Code(s): 270532069 ICD Code: I50.22 - CHRONIC SYSTOLIC (CONGESTIVE) HEART FAILURE Status: Acute Current Visit: Yes Problem Details: Currently on Lasix 40 mg twice a day and metolazone 2.5 mg every other day. Spironolactone was started this hospitalization. These will need to be monitored carefully in the outpatient setting and adjusted by the patient's primary care provider, Dr. Becerril. Given previous diastolic dysfunction, likely spironolactone could be stopped fairly soon. (3) Diabetes type 2, controlled SNOMED Code(s): 13549356 ICD Code: E11.9 - TYPE 2 DIABETES MELLITUS WITHOUT COMPLICATIONS Status: Acute Current Visit: Yes Problem Details: Poorly controlled. Goal would be blood sugar under 200 for optimal wound healing and prevention of infection. Recommend discharge on metformin 1000 mg BID with meals, glipizide ER 5 mg po BID with meals, and continue lantus at bedtime 30 units UNLESS blood sugar is below 140 at bedtime. If blood sugar is below 140 at bedtime, eat one carbohydrate snack and decrease lantus to 15 units. Follow up with Dr. Becerril this week to discuss starting an additional oral agent like Januvia which may give more benefit to weight loss than the lantus. She should check her blood sugars in the morning and at night, write these down and bring them in to her appointment so Dr. Becerril can use these to adjust her medication. (4) Insomnia SNOMED Code(s): 203415163 ICD Code: G47.00 - INSOMNIA, UNSPECIFIED Status: Acute Current Visit: Yes Problem Details: Will discharge on small prescription of ambien. - Patient Summary/Data Consults: Consultations 01/19/18 13:00 OT Evaluation and Treatment [CONS] Routine Please Evaluate and Treat. OT Reason for Consult: Strengthening This query below is only for informational purposes and is not editable. PT Evaluation and Treatment [CONS] Routine Please Evaluate and Treat. PT Reason for Consult: Strengthening This query below is only for informational purposes and is not editable. - Patient Instructions Diet: Heart Healthy Diet Activity: No Lifting Over 10 Pounds, No Strenuous Activities - Discharge Plan Prescriptions/Med Rec: Carvedilol [Coreg] 6.25 mg PO Q12H #60 tablet Formoterol/Mometasone [Dulera 100-50 MCG] 2 puff IH BID #1 hfa.aer.ad Furosemide 40 mg PO BID@08,14 #60 tablet Insulin Glarg,Human.Rec.Analog [Lantus] 30 units SUBCUT BEDTIME #1 vial Omeprazole 20 mg PO QAM #30 cap.cr Potassium Chloride [Klor-Con M20] 20 meq PO BID #60 tab.er Spironolactone [Aldactone] 50 mg PO DAILY #30 tablet Warfarin [Coumadin] 5 mg PO SuMoTuWeThSa@1600 #100 tablet Zolpidem [Ambien] 5 mg PO BEDTIME PRN #5 tablet PRN Reason: Sleep Home Medications: Home Meds Simvastatin [Zocor] 20 mg PO DAILY 05/12/15 [History] Ascorbate Calcium [Vitamin C] 500 mg PO DAILY 05/12/16 [History] Albuterol [Ventolin HFA] 2 puff IH Q4H PRN 01/19/18 [History] Anastrozole [Arimidex] 1 mg PO DAILY 01/19/18 [History] Cholecalciferol (Vitamin D3) [Vitamin D3] 1,000 unit PO DAILY 01/19/18 [History] Docusate Sodium [Dok] 250 mg PO DAILY 01/19/18 [History] Magnesium Oxide 400 mg PO DAILY 01/19/18 [History] Multivitamin with Minerals [Multivitamins with Minerals] 1 tab PO DAILY [History] Warfarin Sliding Scale [Coumadin Sliding Scale] 1 ea PO ASDIRECTED 01/19/18 [ History] Acetaminophen [Tylenol] 650 mg PO Q4H PRN tablet 01/31/18 [Rx] Bisacodyl [Dulcolax] 10 mg RECTAL DAILY PRN supp 01/31/18 [Rx] Carvedilol [Coreg] 6.25 mg PO Q12H #60 tablet 01/31/18 [Rx] Formoterol/Mometasone [Dulera 100-50 MCG] 2 puff IH BID #1 hfa.aer.ad 01/31/18 [ Rx] Furosemide 40 mg PO BID@08,14 #60 tablet 01/31/18 [Rx] Insulin Glarg,Human.Rec.Analog [Lantus] 30 units SUBCUT BEDTIME #1 vial [Rx] Magnesium Hydroxide [Milk of Magnesia] 30 ml PO DAILY PRN cup 01/31/18 [Rx] Metolazone [Zaroxolyn] 2.5 mg PO Q48H tablet 01/31/18 [Rx] Omeprazole 20 mg PO QAM #30 cap.cr 01/31/18 [Rx] Polyethylene Glycol 3350 [MiraLAX] 17 gm PO DAILY PRN packet 01/31/18 [Rx] Potassium Chloride [Klor-Con M20] 20 meq PO BID #60 tab.er 01/31/18 [Rx] Spironolactone [Aldactone] 50 mg PO DAILY #30 tablet 01/31/18 [Rx] Warfarin [Coumadin] 5 mg PO SuMoTuWeThSa@1600 #100 tablet 01/31/18 [Rx] Warfarin [Coumadin] 7.5 mg PO Fr@1600 tablet 01/31/18 [Rx] Zolpidem [Ambien] 5 mg PO BEDTIME PRN #5 tablet 01/31/18 [Rx] glipiZIDE [Glucotrol XL] 5 mg PO BID tab.er 01/31/18 [Rx] guaiFENesin [Robitussin] 100 mg PO Q4H PRN cup 01/31/18 [Rx] hydrOXYzine HCl [hydrOXYzine] 25 mg PO BEDTIME PRN tablet 01/31/18 [Rx] metFORMIN [Glucophage XR] 1,000 mg PO BIDMEALS tab.er 01/31/18 [Rx] - Discharge Summary/Plan Comment DC Time >30 min.: Yes - General Info Date of Service: 01/31/18 Subjective Update: On the day of discharge, patient was feeling well. She was ready to go home. She is disappointed that she would need to go home on insulin we discussed transitioning this to another oral agent like Januvia in the outpatient setting if she is unable to wean off it quickly. She had no chest pain other than her incision site, no shortness of breath. No nausea or vomiting or diarrhea. Pain was well controlled with just Tylenol. Still significant pedal edema but improving. - Patient Data Vitals - Most Recent: Last Vital Signs Temp 36.6 C 01/30/18 08:15 Pulse 93 01/30/18 21:00 Resp 15 01/30/18 08:15 BP 124/72 01/30/18 21:00 Pulse Ox 98 01/30/18 08:15 Weight - Most Recent: 100.811 kg I&O - Last 24 hours: Intake & Output 01/30/18 01/31/18 01/31/18 22:59 06:59 14:59 Intake Total 120 90 Output Total 650 Balance 120 -560 Lab Results - Last 24 hrs: Laboratory Results - last 24 hr 01/30/18 01/30/18 01/31/18 Range/Units 17:00 20:45 06:14 POC Glucose 136 H 277 H D 157 H D (80-116) mg/dL Med Orders - Current: Current Medications Acetaminophen (Tylenol) 650 mg PO Q4H PRN PRN Reason: Headache Last Admin: 01/31/18 07:36 Dose: 650 mg Albuterol (Ventolin Hfa) 0 gm INH Q4H PRN PRN Reason: SHORTNESS OF BREATH/WHEEZING Last Admin: 01/22/18 13:06 Dose: 2 puff Anastrozole (Arimidex) 1 mg PO DAILY [facility] Last Admin: 01/30/18 08:17 Dose: 1 mg Ascorbic Acid (Vitamin C) 500 mg PO DAILY [facility] Last Admin: 01/30/18 08:17 Dose: 500 mg Bisacodyl (Dulcolax) 10 mg RECTAL DAILY PRN PRN Reason: Constipation Last Admin: 01/24/18 17:18 Dose: 10 mg Carvedilol (Coreg) 6.25 mg PO Q12H [facility] Last Admin: 01/30/18 21:00 Dose: 6.25 mg Cholecalciferol (Vitamin D3) 1,000 units PO DAILY [facility] Last Admin: 01/30/18 08:16 Dose: 1,000 units Docusate Sodium (Dok) 250 mg PO DAILY [facility] Last Admin: 01/30/18 08:16 Dose: 250 mg Furosemide (Lasix) 40 mg PO BID@08,14 [facility] Last Admin: 01/30/18 14:27 Dose: 40 mg Glipizide (Glucotrol Xl) 5 mg PO BID [facility] Guaifenesin (Robitussin) 100 mg PO Q4H PRN PRN Reason: Cough Last Admin: 01/23/18 20:50 Dose: 100 mg Hydroxyzine HCl (Atarax) 25 mg PO BEDTIME PRN PRN Reason: rest Last Admin: 01/27/18 21:18 Dose: 25 mg Insulin Detemir (Levemir) 30 unit SUBCUT BEDTIME [facility] Last Admin: 01/30/18 20:49 Dose: 30 units Magnesium Hydroxide (Milk Of Magnesia) 30 ml PO DAILY PRN PRN Reason: Constipation Last Admin: 01/23/18 08:41 Dose: 30 ml Magnesium Oxide (Magnesium Oxide) 400 mg PO DAILY [facility] Last Admin: 01/30/18 08:16 Dose: 400 mg Metformin HCl (Glucophage Xr) 1,000 mg PO BIDMEALS [facility] Last Admin: 01/30/18 17:00 Dose: 1,000 mg Metolazone (Zaroxolyn) 2.5 mg PO Q48H [facility] Last Admin: 01/31/18 07:37 Dose: 2.5 mg Mometasone Furoate/Formoterol Fumar (Dulera 100-5 Mcg) 2 puff IH BID [facility] Last Admin: 01/30/18 20:49 Dose: 2 puff Multivitamins/Minerals/Vitamin C (Tab-A-Cleo) 1 tab PO DAILY [facility] Last Admin: 01/30/18 08:16 Dose: 1 tab Pantoprazole Sodium (Protonix) 40 mg PO QAM [facility] Last Admin: 01/31/18 06:15 Dose: 40 mg Polyethylene Glycol (Miralax) 17 gm PO DAILY PRN PRN Reason: Constipation Last Admin: 01/24/18 15:17 Dose: 17 gm Potassium Chloride (Klor-Con M20) 20 meq PO TID [facility] Last Admin: 01/30/18 20:49 Dose: 20 meq Simvastatin (Zocor) 20 mg PO DAILY [facility] Last Admin: 01/30/18 08:16 Dose: 20 mg Spironolactone (Aldactone) 50 mg PO DAILY [facility] Last Admin: 01/30/18 08:16 Dose: 50 mg Tramadol HCl (Ultram) 50 mg PO Q8H PRN PRN Reason: Breakthrough Pain Last Admin: 01/29/18 21:42 Dose: 50 mg Warfarin Sodium (Coumadin Sliding Scale) 1 each PO ASDIRECTED [facility] Warfarin Sodium 5 mg/ Warfarin (Sodium 2.5 mg) 7.5 mg PO Fr@1600 [facility] Stop: 02/04/18 16:01 Last Admin: 01/28/18 16:33 Dose: 7.5 mg Warfarin Sodium (Coumadin) 5 mg PO SuMoTuWeThSa@1600 [facility] Stop: 02/03/18 16:01 Last Admin: 01/30/18 16:58 Dose: 5 mg Zolpidem Tartrate (Ambien) 5 mg PO BEDTIME PRN PRN Reason: Sleep Discontinued Medications Acetaminophen (Tylenol) 650 mg PO Q4H PRN PRN Reason: Pain Hydrocodone Bitart/Acetaminophen ([place] 325-10 Mg) 1 tab PO Q4H PRN PRN Reason: MODERATE PAIN Last Admin: 01/23/18 06:55 Dose: 1 tab Amiodarone HCl (Cordarone) 200 mg PO Q8H [facility] Stop: 01/22/18 14:01 Last Admin: 01/19/18 16:29 Dose: 200 mg Amiodarone HCl (Cordarone) 200 mg PO Q8H [facility] Last Admin: 01/20/18 02:21 Dose: 200 mg Amiodarone HCl (Cordarone) 200 mg PO Q8H [facility] Stop: 01/22/18 18:01 Last Admin: 01/22/18 19:19 Dose: 200 mg Enoxaparin Sodium (Lovenox) 100 mg SUBCUT Q12H [facility] Last Admin: 01/22/18 15:37 Dose: Not Given Enoxaparin Sodium (Lovenox) 100 mg SUBCUT Q12H [facility] Stop: 01/19/18 22:01 Last Admin: 01/19/18 21:34 Dose: 100 mg Furosemide (Lasix) 40 mg PO BIDDIURETIC [facility] Last Admin: 01/20/18 09:27 Dose: Not Given Insulin Detemir (Levemir) 45 unit SUBCUT BEDTIME [facility] Last Admin: 01/25/18 20:45 Dose: 45 unit Insulin Detemir (Levemir) 45 unit SUBCUT BEDTIME [facility] Last Admin: 01/29/18 21:28 Dose: 45 units Metformin HCl (Glucophage Xr) 500 mg PO BIDMEALS [facility] Stop: 01/29/18 23:59 Last Admin: 01/29/18 17:45 Dose: 500 mg Metolazone (Zaroxolyn) 2.5 mg PO DAILY@0600 [facility] Last Admin: 01/24/18 06:30 Dose: 2.5 mg Metolazone (Zaroxolyn) 2.5 mg PO ONETIME ONE Stop: 01/27/18 09:16 Last Admin: 01/27/18 10:47 Dose: 2.5 mg Mometasone Furoate/Formoterol Fumar (Dulera 100-5 Mcg) 2 puff IH BID [facility] Potassium Chloride (Klor-Con M20) 40 meq PO ONETIME ONE Stop: 01/23/18 09:14 Last Admin: 01/23/18 09:46 Dose: 40 meq Sodium Biphosphate/Sodium Phosphate (Fleet Enema) 133 ml RECTAL ONETIME ONE Stop: 01/25/18 02:01 Last Admin: 01/25/18 02:00 Dose: 133 ml Warfarin Sodium (Coumadin) 10 mg PO ONETIME ONE Stop: 01/20/18 16:01 Last Admin: 01/20/18 16:12 Dose: 10 mg Warfarin Sodium (Coumadin) 7.5 mg PO ONETIME ONE Stop: 01/21/18 16:01 Last Admin: 01/21/18 16:43 Dose: 7.5 mg Warfarin Sodium (Coumadin) 5 mg PO DAILY@1600 ONE Stop: 01/22/18 16:01 Last Admin: 01/22/18 15:55 Dose: 5 mg Warfarin Sodium (Coumadin) 5 mg PO DAILY@1600 ONE Stop: 01/23/18 16:01 Last Admin: 01/23/18 16:30 Dose: 5 mg Warfarin Sodium (Coumadin) 5 mg PO DAILY@1600 [facility] Stop: 01/25/18 17:00 Last Admin: 01/25/18 16:36 Dose: 5 mg Warfarin Sodium (Coumadin) 5 mg PO DAILY@1600 [facility] Stop: 01/27/18 17:00 Last Admin: 01/27/18 15:39 Dose: 5 mg - Exam General: Reports: Alert, Oriented, Cooperative, No Acute Distress HEENT: Reports: Pupils Equal, Pupils Reactive Neck: Reports: Supple Lungs: Reports: Clear to Auscultation, Normal Respiratory Effort Cardiovascular: Reports: Regular Rate, Regular Rhythm (Audible valve click) GI/Abdominal Exam: Normal Bowel Sounds, Soft, Non-Tender Extremities: Pedal Edema (+3 symmetrical) Wound/Incisions: Reports: Healing Well (Incision clean and dry with very little scab left. Almost completely healed.) Psy/Mental Status: Reports: Alert, Anxious (A little tearful. ) *Q Meaningful Use (DIS) - VTE *Q VTE Criteria *Q: - Stroke *Q Stroke Criteria *Q: - AMI *Q AMI Criteria *Q:
[2018-01-31] MEDS ORDERED: glipiZIDE 5 MG Tab.ER PO SCH (09:00)
[2018-01-31] MEDS: Magnesium Oxide 400 MG Tab PO SCH (09:01)
[2018-01-31] MEDS: Docusate Sodium 250 MG Cap PO SCH (09:01)
[2018-01-31] MEDS: Potassium Chloride 20 MEQ Tab.ER PO SCH (09:01)
[2018-01-31] MEDS: Cholecalciferol (Vitamin D3) 1,000 Unit Tab PO SCH (09:01)
[2018-01-31] MEDS: Furosemide 40 MG Tab PO SCH (09:01)
[2018-01-31] MEDS: Anastrozole 1 MG Tab PO SCH (09:01)
[2018-01-31] MEDS: Spironolactone 50 MG Tab PO SCH (09:01)
[2018-01-31] MEDS: Ascorbic Acid 500 MG Tab PO SCH (09:01)
[2018-01-31] MEDS: Multivitamin Tab PO SCH (09:01)
[2018-01-31] MEDS: Simvastatin 20 MG Tab PO SCH (09:01)
[2018-01-31] MEDS: Formoterol/Mometasone 100-5 MCG 8.8 GM Inhaler IH SCH (09:01)
[2018-01-31] MEDS: Carvedilol 6.25 MG Tab PO SCH (09:01)
[2018-01-31] MEDS: metFORMIN 500 MG Tab.ER PO SCH (09:03)
[2018-01-31 09:06] VITALS: BP 109/64
== END 2018-01-31 11:55 | disposition home or self-care (01) | DRG 948 ==
LOC: FB.MS 13:15
PROVIDERS: ADMIT Family Medicine; ATTEND Family Medicine
DX: R53.1 Weakness (principal); I50.40 Unspecified combined systolic (congestive) and diastolic (congestive) heart failure; E87.1 Hypo-osmolality and hyponatremia; Z98.890 Other specified postprocedural states; Z95.2 Presence of prosthetic heart valve; D64.9 Anemia, unspecified; I48.91 Unspecified atrial fibrillation; Z79.01 Long term (current) use of anticoagulants; I11.0 Hypertensive heart disease with heart failure; E78.5 Hyperlipidemia, unspecified; E11.42 Type 2 diabetes mellitus with diabetic polyneuropathy; Z79.4 Long term (current) use of insulin; G47.00 Insomnia, unspecified; E87.6 Hypokalemia; R60.9 Edema, unspecified; Z88.8 Allergy status to other drugs, medicaments and biological substances; R41.0 Disorientation, unspecified
CPT/HCPCS: 36415; 80048; 80053; 81001; 82962; 83880; 85025; 85610; 94150; 97110-GO; 97110-GP; 97116-GP; 97162-GP; 97165-GO; 97530-GO; 97530-GP; 97535-GO; A9270; A9270-GY; J1650

== ENCOUNTER 2018-05-21 14:11 | Emergency (ER) | payer MEDICARE, BC ==
--- NOTE | 2018-05-21 14:46 | EDM.PDOC ---
ED HPI GENERAL MEDICAL PROBLEM - General Stated Complaint: LOW BLOOD SUGAR Time Seen by Provider: 05/21/18 14:38 Source of Information: Reports: Patient, Family () History Limitations: Reports: Altered Mental Status - History of Present Illness INITIAL COMMENTS - FREE TEXT/NARRATIVE: 67 y.o.w.f with H/O CAD, H/O a fib (on Coumadin) came by EMS to the ed because she felt weak and was not able to void in the past 4 days. Her did an accu check this am which was 47. Pt took jelly, accu check was then 57. Pt felt chest discomfort and was brought to the ed due to weakness and CP. Pt had loose stool in the past few days as well. Pt felt cold. Pt is a poor historian, she appeared comfortable resting. BP 124/89 Pulse 82 Pulse ox 99% on RA Temp 96.4F Onset Date: 05/18/18 Onset Time: 08:00 Duration: Day(s):, Getting Worse Location: Reports: Generalized Quality: Reports: Pressure Improves with: Reports: Medication Worsens with: Reports: Movement Context: Reports: Other (multiple medical issues) Associated Symptoms: Reports: Confusion - Related Data Allergies Allergy/AdvReac Type Severity Reaction Status Date / Time flecainide Allergy Hypotension Verified 05/21/18 16:14 lisinopril Allergy Cough Verified 05/21/18 16:14 Home Meds: Home Meds . [Unable to Verify Home Med List] 05/21/18 [History] Past Medical History HEENT History: Reports: Other (See Below) Other HEENT History: DM retinopathy Cardiovascular History: Reports: Afib, Heart Failure, Heart Valve Replacement, High Cholesterol, Hypertension, Pacemaker, Other (See Below) (Hypertension, hyperlipidemia) Other Cardiovascular History: Sick Sinus Syndrome, Atrial Fib, Gastrointestinal History: Reports: Other (See Below) Other Gastrointestinal History: Obesity Genitourinary History: Reports: Other (See Below) Other Genitourinary History: CKD stage 3 Musculoskeletal History: Reports: Arthritis Other Musculoskeletal History: Sacroiliitis, lumbar spondylosis Neurological History: Reports: Other (See Below) (Peripheral neuropathy) Endocrine/Metabolic History: Reports: Diabetes, Type II, Other (See Below) ( Thyroid enlargement) Other Endocrine/Metabolic History: Thyroid diagnosis Hematologic History: Reports: Anemia Oncologic (Cancer) History: Reports: Breast - Past Surgical History Cardiovascular Surgical History: Reports: Other (See Below) Other Cardiovascular Surgeries/Procedures: January 2018: Mitral Valve Replacement , Tricuspid Valve Repair, Maze Operation for Atrial Fibrillation. Long-term use of anticoagulants. GI Surgical History: Reports: Cholecystectomy Female Surgical History: Reports: Hysterectomy Musculoskeletal Surgical History: Reports: Other (See Below) Other Musculoskeletal Surgeries/Procedures:: Arthroscopy. Oncologic Surgical History: Reports: Lumpectomy, Mastectomy, Other (See Below) Other Oncologic Surgeries/Procedures: Right breast. Social & Family History - Caffeine Use Caffeine Use: Reports: Coffee ED ROS GENERAL - Review of Systems Review Of Systems: See Below Constitutional: Reports: Weakness, Fatigue HEENT: Reports: No Symptoms Respiratory: Reports: No Symptoms Cardiovascular: Reports: Chest Pain (epigastic(?)) Endocrine: Reports: No Symptoms GI/Abdominal: Reports: Abdominal Pain : Reports: Urinary Retention (could not void for 4 days) Musculoskeletal: Reports: No Symptoms Skin: Reports: No Symptoms Neurological: Reports: No Symptoms Psychiatric: Reports: No Symptoms Hematologic/Lymphatic: Reports: No Symptoms Immunologic: Reports: No Symptoms ED EXAM, GENERAL - Physical Exam Exam: See Below Exam Limited By: Altered Mental Status General Appearance: Alert, WD/WN, Moderate Distress, Obese Eye Exam: Bilateral Eye: Normal Inspection Ears: Normal External Exam, Normal Canal Ear Exam: Bilateral Ear: Auricle Normal Nose: Normal Inspection, Normal Mucosa, No Blood Throat/Mouth: Normal Lips, Normal Voice, No Airway Compromise Head: Atraumatic, Normocephalic Neck: Normal Inspection, Supple, Non-Tender, Full Range of Motion Respiratory/Chest: No Respiratory Distress, Lungs Clear, Normal Breath Sounds Cardiovascular: Normal Peripheral Pulses, Regular Rate, Rhythm, Other (mild pedal edema) GI/Abdominal: Normal Bowel Sounds, Distended, Tender (epigastric tenderness) (Female) Exam: Deferred Rectal (Female) Exam: Deferred Back Exam: Normal Inspection, Full Range of Motion Extremities: Normal Range of Motion, Non-Tender, No Pedal Edema, Pedal Edema Neurological: Alert, Oriented, CN II-XII Intact, No Motor/Sensory Deficits, Abnormal Gait (unable to ambulate, came by EMS) Psychiatric: Normal Affect, Normal Mood Skin Exam: Warm, Dry, Intact Lymphatic: No Adenopathy EKG INTERPRETATION EKG Date: 05/21/18 Time: 15:55 Rhythm: A-Fib Rate (Beats/Min): 68 [place]: LAD-Left [place] Deviation P-Wave: Absent QRS: LBBB ST-T: Normal Comparison: NA - No Prior EKG Course - Vital Signs Text/Narrative:: 67 y.o.w.f with H/O CAD, H/O a fib (on Coumadin) came by EMS to the ed because she felt weak and was not able to void in the past 4 days. Her did an accu check this am which was 47. Pt took jelly, accu check was then 57. Pt felt chest discomfort and was brought to the ed due to weakness and CP. Pt had loose stool in the past few days as well. Pt felt cold. Pt is a poor historian, she appeared comfortable resting. BP 124/89 Pulse 82 Pulse ox 99% on RA Temp 96.4F PE: WNWD W F cam by EMS due to weakness unable to void for 4 days. Imaging: CXR: NAD Abd. Nonspecific BCP Labs: WBC 12.5 HGB 9.8 HCT 28.4 Pls 175 INR 6.67 (on Coumadin) BUN 144 Cr. 8.2, Na 119, K 6.7 GFR < 5, UA:Neg, BNP 86458 ABG: pH 7.34 pCO2 31, HCO3 13 BE -8.1 Impression: Acute renal insufficiency, hyponatremia, hyperkalemia, urinary retention, Hypertherapeutic INR, Ventricular paced. Elevated BNP, GFR <5 Tx: Duo neb, Glc/Insulin Cacl, Kayexalate, Biocarbonat, 4.00 pm Consultation: Dr. FERRARA, Hospitalist, [facility]: Tx ordered must be initiated. Accepted the pt for transfer and admission to the intermediate/Step down unit Reexam: Pt was never on Dialysis, Accu check on transfer was 93 (verbal report) , pt passe 300 cc of urine through the Rm cath. pt felt better Plan: Transfer to [facility] by EMS - Orders/Labs/Meds Orders: Active Orders 24 hr Category Date Time Status Accu Check [Blood Glucose Check, Bedside] [RC] ONETIME Care 05/21/18 17:00 Active EKG Documentation Completion [RC] ASDIRECTED Care 05/21/18 14:42 Active Rm Catheter Insertion [Insert Urinary Catheter] [OM. Care 05/21/18 15:30 Ordered PC] Q24H RT Aerosol Therapy [RC] ASDIRECTED Care 05/21/18 15:43 Active Urinary Catheter Assessment [RC] QSHIFT Care 05/21/18 15:26 Active Abdomen Series w Chest 1V [CR] Stat Exams 05/21/18 14:39 Taken UA W/MICROSCOPIC [URIN] Stat Lab 05/21/18 16:00 Ordered EKG 12 Lead [EK] Routine Ther 05/21/18 14:42 Ordered Labs: Laboratory Tests 05/21/18 05/21/18 05/21/18 Range/Units 15:00 15:00 15:00 WBC 12.8 H (4.5-12.0) X10-3/uL RBC 3.64 (3.23-5.20) x10(6)uL Hgb 9.8 L (11.5-15.5) g/dL Hct 29.5 L (30.0-51.3) % MCV 81.0 (80-96) fL MCH 26.9 L (27.7-33.6) pg MCHC 33.1 (32.2-35.4) g/dL RDW 16.2 H (11.5-15.5) % Plt Count 173 (125-369) X10(3)uL MPV 8.8 (7.4-10.4) fL Add Manual Diff Yes Neutrophils % (Manual) 91 H (46-82) % Lymphocytes % (Manual) 5 L (13-37) % Monocytes % (Manual) 4 (4-12) % PT 62.6 H* (8.7-11.1) INR 6.57 H* (0.89-1.13) ABG pH (7.35-7.45) ABG pCO2 (35-45) mmHg ABG pO2 (83-108) mmHg ABG HCO3 (22-26) mmol/L ABG O2 Saturation (96-97) % ABG Base Excess (-2-2) Clem Test O2 Delivery Device Sodium 119 L* D (135-145) mmol/L Potassium 6.7 H* D (3.5-5.3) mmol/L Chloride 84 L* D (100-110) mmol/L Carbon Dioxide 16 L (21-32) mmol/L BUN 144 H* (7-18) mg/dL Creatinine 8.2 H* (0.55-1.02) mg/dL Est Cr Clr Drug Dosing TNP Estimated GFR (MDRD) 5 L (>60) BUN/Creatinine Ratio 17.6 (9-20) Glucose 61 L (80-116) mg/dL POC Glucose (80-116) mg/dL Lactic Acid (0.4-2.2) mmol/L Calcium 9.1 (8.6-10.2) mg/dL Magnesium (1.8-2.5) mg/dL Creatine Kinase 65 (60-160) IU/L Troponin I (<0.017-0.056) ng/mL NT-Pro-B Natriuret Pep (<=125) pg/mL Urine Color (YELLOW) Urine Appearance (CLEAR) Urine pH (5.0-6.5) Ur Specific [place] (1.010-1.025) Urine Protein (NEGATIVE) mg/dL Urine Glucose (UA) (NEGATIVE) mg/dL Urine Ketones (NEGATIVE) mg/dL Urine Occult Blood (NEGATIVE) Urine Nitrite (NEGATIVE) Urine Bilirubin (NEGATIVE) Urine Urobilinogen (NEGATIVE) mg/dL Ur Leukocyte Esterase (NEGATIVE) Urine RBC (0) Urine WBC (0) Ur Squamous Epith Cells (NS,R,O) Amorphous Sediment Urine Bacteria (NS) 05/21/18 05/21/18 05/21/18 Range/Units 15:00 15:00 15:00 WBC (4.5-12.0) X10-3/uL RBC (3.23-5.20) x10(6)uL Hgb (11.5-15.5) g/dL Hct (30.0-51.3) % MCV (80-96) fL MCH (27.7-33.6) pg MCHC (32.2-35.4) g/dL RDW (11.5-15.5) % Plt Count (125-369) X10(3)uL MPV (7.4-10.4) fL Add Manual Diff Neutrophils % (Manual) (46-82) % Lymphocytes % (Manual) (13-37) % Monocytes % (Manual) (4-12) % PT (8.7-11.1) INR (0.89-1.13) ABG pH (7.35-7.45) ABG pCO2 (35-45) mmHg ABG pO2 (83-108) mmHg ABG HCO3 (22-26) mmol/L ABG O2 Saturation (96-97) % ABG Base Excess (-2-2) Clem Test O2 Delivery Device Sodium (135-145) mmol/L Potassium (3.5-5.3) mmol/L Chloride (100-110) mmol/L Carbon Dioxide (21-32) mmol/L BUN (7-18) mg/dL Creatinine (0.55-1.02) mg/dL Est Cr Clr Drug Dosing Estimated GFR (MDRD) (>60) BUN/Creatinine Ratio (9-20) Glucose (80-116) mg/dL POC Glucose (80-116) mg/dL Lactic Acid 3.2 H (0.4-2.2) mmol/L Calcium (8.6-10.2) mg/dL Magnesium 3.6 H* (1.8-2.5) mg/dL Creatine Kinase (60-160) IU/L Troponin I 0.025 (<0.017-0.056) ng/mL NT-Pro-B Natriuret Pep 17899 H* (<=125) pg/mL Urine Color (YELLOW) Urine Appearance (CLEAR) Urine pH (5.0-6.5) Ur Specific [place] (1.010-1.025) Urine Protein (NEGATIVE) mg/dL Urine Glucose (UA) (NEGATIVE) mg/dL Urine Ketones (NEGATIVE) mg/dL Urine Occult Blood (NEGATIVE) Urine Nitrite (NEGATIVE) Urine Bilirubin (NEGATIVE) Urine Urobilinogen (NEGATIVE) mg/dL Ur Leukocyte Esterase (NEGATIVE) Urine RBC (0) Urine WBC (0) Ur Squamous Epith Cells (NS,R,O) Amorphous Sediment Urine Bacteria (NS) 05/21/18 05/21/18 05/21/18 Range/Units 16:00 16:18 17:04 WBC (4.5-12.0) X10-3/uL RBC (3.23-5.20) x10(6)uL Hgb (11.5-15.5) g/dL Hct (30.0-51.3) % MCV (80-96) fL MCH (27.7-33.6) pg MCHC (32.2-35.4) g/dL RDW (11.5-15.5) % Plt Count (125-369) X10(3)uL MPV (7.4-10.4) fL Add Manual Diff Neutrophils % (Manual) (46-82) % Lymphocytes % (Manual) (13-37) % Monocytes % (Manual) (4-12) % PT (8.7-11.1) INR (0.89-1.13) ABG pH 7.34 L (7.35-7.45) ABG pCO2 31 L (35-45) mmHg ABG pO2 206 H (83-108) mmHg ABG HCO3 16 L (22-26) mmol/L ABG O2 Saturation 100 H (96-97) % ABG Base Excess -8.1 L (-2-2) Clem Test Passed O2 Delivery Device Room air Sodium (135-145) mmol/L Potassium (3.5-5.3) mmol/L Chloride (100-110) mmol/L Carbon Dioxide (21-32) mmol/L BUN (7-18) mg/dL Creatinine (0.55-1.02) mg/dL Est Cr Clr Drug Dosing Estimated GFR (MDRD) (>60) BUN/Creatinine Ratio (9-20) Glucose (80-116) mg/dL POC Glucose 95 (80-116) mg/dL Lactic Acid (0.4-2.2) mmol/L Calcium (8.6-10.2) mg/dL Magnesium (1.8-2.5) mg/dL Creatine Kinase (60-160) IU/L Troponin I (<0.017-0.056) ng/mL NT-Pro-B Natriuret Pep (<=125) pg/mL Urine Color Yellow (YELLOW) Urine Appearance Slightly cloudy (CLEAR) Urine pH 5.0 (5.0-6.5) Ur Specific [place] 1.010 (1.010-1.025) Urine Protein 30 H (NEGATIVE) mg/dL Urine Glucose (UA) Normal (NEGATIVE) mg/dL Urine Ketones Negative (NEGATIVE) mg/dL Urine Occult Blood Negative (NEGATIVE) Urine Nitrite Negative (NEGATIVE) Urine Bilirubin Negative (NEGATIVE) Urine Urobilinogen Normal (NEGATIVE) mg/dL Ur Leukocyte Esterase Negative (NEGATIVE) Urine RBC 0-5 (0) Urine WBC 0-5 (0) Ur Squamous Epith Cells Few H (NS,R,O) Amorphous Sediment Moderate Urine Bacteria Moderate H (NS) Meds: Medications Discontinued Medications Generic Name Dose Route Start Last Admin Trade Name Cecilia PRN Reason Stop Dose Admin Albuterol/Ipratropium 3 ml 05/21/18 15:42 05/21/18 16:07 Duoneb 3.0-0.5 Mg/3 Ml NEB 05/21/18 15:43 3 ml ONETIME ONE Administration Calcium Chloride 1 gm 05/21/18 15:45 05/21/18 16:17 Calcium Chloride 10% IV 05/21/18 15:46 1 gm ONETIME ONE Administration Dextrose/Water 50 ml 05/21/18 15:45 05/21/18 16:00 Dextrose 50% In Water IVPUSH 05/21/18 15:46 50 ml ONETIME ONE Administration Furosemide 40 mg 05/21/18 15:45 05/21/18 16:09 Lasix IVPUSH 05/21/18 15:46 40 mg ONETIME ONE Administration Insulin Human Regular 10 unit 05/21/18 15:45 05/21/18 16:10 Humulin R IVPUSH 05/21/18 15:46 10 unit ONETIME ONE Administration Ondansetron HCl 8 mg 05/21/18 16:35 05/21/18 16:40 Zofran IVPUSH 05/21/18 16:36 8 mg ONETIME ONE Administration Sodium Bicarbonate 50 meq 05/21/18 15:45 05/21/18 16:20 Sodium Bicarbonate 8.4% IVPUSH 05/21/18 15:46 50 meq ONETIME ONE Administration Sodium Polystyrene Sulfonate 15 gm 05/21/18 15:45 05/21/18 16:18 Kayexalate PO 05/21/18 15:46 15 gm ONETIME ONE Administration Sodium Polystyrene Sulfonate Confirm 05/21/18 16:09 05/21/18 16:19 Kayexalate Administered 05/21/18 16:10 Not Given Dose 15 gm .ROUTE .STK-MED ONE Departure - Departure Time of Disposition: 17:05 Disposition: DC/Tfer to [facility] 02 Condition: Fair Clinical Impression: Acute renal failure Qualifiers: Acute renal failure type: unspecified Qualified Code(s): N17.9 - Acute kidney failure, unspecified - Discharge Information Referrals: Praneeth Gonzalez MD [Primary Care Provider] - - My Orders Last 24 Hours: My Active Orders 05/21/18 14:39 Abdomen Series w Chest 1V [CR] Stat 05/21/18 14:42 EKG Documentation Completion [RC] ASDIRECTED EKG 12 Lead [EK] Routine 05/21/18 15:26 Urinary Catheter Assessment [RC] QSHIFT 05/21/18 15:30 Rm Catheter Insertion [Insert Urinary Catheter] [OM.PC] Q24H 05/21/18 15:43 RT Aerosol Therapy [RC] ASDIRECTED 05/21/18 16:00 UA W/MICROSCOPIC [URIN] Stat 05/21/18 17:00 Accu Check [Blood Glucose Check, Bedside] [RC] ONETIME - Assessment/Plan Last 24 Hours: My Active Orders 05/21/18 14:39 Abdomen Series w Chest 1V [CR] Stat 05/21/18 14:42 EKG Documentation Completion [RC] ASDIRECTED EKG 12 Lead [EK] Routine 05/21/18 15:26 Urinary Catheter Assessment [RC] QSHIFT 05/21/18 15:30 Rm Catheter Insertion [Insert Urinary Catheter] [OM.PC] Q24H 05/21/18 15:43 RT Aerosol Therapy [RC] ASDIRECTED 05/21/18 16:00 UA W/MICROSCOPIC [URIN] Stat 05/21/18 17:00 Accu Check [Blood Glucose Check, Bedside] [RC] ONETIME
[2018-05-21] MEDS ORDERED: Albuterol/Ipratropium 3.0-0.5 MG/3 ML Neb Soln NEB ONE (15:42)
[2018-05-21] MEDS ORDERED: 50% Dextrose in Water 50 ML Syringe IVPUSH ONE (15:45)
[2018-05-21] MEDS ORDERED: Sodium Bicarbonate 8.4% 50 MEQ/50 ML SDV IVPUSH ONE (15:45)
[2018-05-21] MEDS ORDERED: Insulin Regular, Human 100 Units/ML 3 ML Vial IVPUSH ONE (15:45)
[2018-05-21] MEDS ORDERED: Calcium Chloride 10% 1 GM/10 ML Syringe IV ONE (15:45)
[2018-05-21] MEDS ORDERED: Sodium Polystyrene Sulfonate 15 GM/60 ML Susp 60 ML Bot PO ONE (15:45)
[2018-05-21] MEDS ORDERED: Furosemide 40 MG/4 ML VIAL IVPUSH ONE (15:45)
[2018-05-21] MEDS ORDERED: Sodium Polystyrene Sulfonate 15 GM/60 ML Susp 60 ML Bot ONE (16:09)
[2018-05-21] MEDS ORDERED: Ondansetron 4 MG/2 ML SDV IVPUSH ONE (16:35)
[2018-05-21 18:17] VITALS: BP 120/69
--- NOTE | 2018-05-23 11:28 | CR ---
INDICATION: Abdominal distention. ABDOMEN SERIES WITH CHEST: CHEST: PA view of the chest 05/21/2018, compared with 09/12/2011, revealed the heart to be enlarged and likely increased in size, compared with the previous study. Evidence of previous median sternotomy is noted with mitral valve replacement. Bipolar pacemaker leads are noted in place with the ventricular lead tip in the area of the apex of the right ventricle. Overlying EKG leads are noted. Surgical clips are noted overlying the lateral aspect of the right chest wall. A definite active infiltrate or effusion was not identified. Mildly prominent upper lung field pulmonary vasculature is noted with slightly prominent interstitial markings, raising question of minimal or early CHF and interstitial lung edema - correlate clinically. No free air is noted under the hemidiaphragm leaves. ABDOMEN: Four views of the abdomen in supine and upright projections were obtained 05/21/2018 - no comparisons. Clips compatible with cholecystectomy are noted. Overlying grommets and EKG leads are noted. Moderate dextroconcave scoliosis of the lower middle lumbar spine is noted with degenerative disk disease at mid to lower levels. Mildly distended small bowel loops are noted with a few air fluid levels in the right flank area. Air fluid levels could be in the ascending/transverse colon. Relatively minimal gas is noted in the distal descending and sigmoid area, as well as the area of the rectum. This raises suspicion for a distal colonic obstructive process but should be correlated clinically. Followup studies may be necessary to further evaluate pattern of gas and feces, which is otherwise nonspecific. No definite mass lesions or free fluid collections were identified. Minimal calcification is suggested in the aorta. IMPRESSION: Cannot exclude a distal colonic obstruction. Findings should be correlated clinically. Obstruction could also be present in the distal small bowel. The possibility of gastroenteritis or paralytic ileus due to localized inflammatory process cannot be excluded. Followup studies may be warranted, depending upon clinical course. MTDD
== END 2018-05-21 17:20 ==
LOC: FB.ED 14:11
DX: N17.9 Acute kidney failure, unspecified (principal); E87.1 Hypo-osmolality and hyponatremia; E87.5 Hyperkalemia; R33.9 Retention of urine, unspecified; R79.89 Other specified abnormal findings of blood chemistry; I13.0 Hypertensive heart and chronic kidney disease with heart failure and stage 1 through stage 4 chronic kidney disease, or unspecified chronic kidney disease; I50.9 Heart failure, unspecified; E11.22 Type 2 diabetes mellitus with diabetic chronic kidney disease; N18.3 Chronic kidney disease, stage 3 (moderate); I48.91 Unspecified atrial fibrillation; Z79.01 Long term (current) use of anticoagulants; Z88.8 Allergy status to other drugs, medicaments and biological substances
CPT/HCPCS: 36415; 36600; 51702; 74022; 80048; 81001; 82550; 82803; 82962; 83605; 83735; 83880; 84484; 85025; 85610; 93005; 94640; 96374; 96375; 99285; A9270; J1815; J1940; J2405; J7620; J3490

== ENCOUNTER 2018-12-22 02:24 | Inpatient (IN) | payer MEDICARE ==
--- NOTE | 2018-12-22 02:27 | EDM.PDOC ---
ED HPI GENERAL MEDICAL PROBLEM - General Stated Complaint: WEAKNESS Time Seen by Provider: 12/22/18 02:26 Source of Information: Reports: Patient, EMS, Family History Limitations: Reports: Physical Impairment - History of Present Illness INITIAL COMMENTS - FREE TEXT/NARRATIVE: 68 y.o.w.f with multiple medical issues, including Cardiomegaly, CHF, lymphedema , abd. distension, came by EMS to the ED because Pt could not up from the toilet seat by herself. Pt is lethargic and not able to give a HPI. No N/V/D. No Chest pain no other acute medical issues. BP 86/43 Pulse Temp 36.6 RR 22 Pulse ox 100% on RA Pulse 109. Onset Date: 12/22/18 Onset Time: 00:05 Duration: Hour(s):, Getting Worse Location: Reports: Generalized Quality: Reports: Dull, Same as Previous Episode Severity: Moderate Improves with: Reports: Rest Worsens with: Reports: Movement Context: Reports: Other (multiple medical issues) Associated Symptoms: Reports: Malaise, Weakness - Related Data Allergies Allergy/AdvReac Type Severity Reaction Status Date / Time flecainide Allergy Hypotension Verified 12/22/18 02:44 lisinopril Allergy Cough Verified 12/22/18 02:44 Home Meds: Home Meds . [Unable to Verify Home Med List] 05/21/18 [History] Past Medical History HEENT History: Reports: Other (See Below) Other HEENT History: DM retinopathy Cardiovascular History: Reports: Afib, Heart Failure, Heart Valve Replacement, High Cholesterol, Hypertension, Pacemaker, Other (See Below) Other Cardiovascular History: Sick Sinus Syndrome, Atrial Fib, Gastrointestinal History: Reports: Other (See Below) Other Gastrointestinal History: Obesity Genitourinary History: Reports: Other (See Below) Other Genitourinary History: CKD stage 3 - Patient states she went through dialysis x2 for kidneys Musculoskeletal History: Reports: Arthritis Other Musculoskeletal History: Sacroiliitis, lumbar spondylosis Neurological History: Reports: Other (See Below) Endocrine/Metabolic History: Reports: Diabetes, Type II, Other (See Below) Other Endocrine/Metabolic History: Thyroid diagnosis Hematologic History: Reports: Anemia Oncologic (Cancer) History: Reports: Breast - Infectious Disease History Infectious Disease History: Reports: Chicken Pox, Shingles - Past Surgical History Cardiovascular Surgical History: Reports: Other (See Below) Other Cardiovascular Surgeries/Procedures: January 2018: Mitral Valve Replacement , Tricuspid Valve Repair, Maze Operation for Atrial Fibrillation. Long-term use of anticoagulants. GI Surgical History: Reports: Cholecystectomy Female Surgical History: Reports: Hysterectomy Musculoskeletal Surgical History: Reports: Other (See Below) Other Musculoskeletal Surgeries/Procedures:: Arthroscopy. Oncologic Surgical History: Reports: Biopsy of Breast, Lumpectomy, Mastectomy, Other (See Below) Other Oncologic Surgeries/Procedures: Right breast. Social & Family History - Caffeine Use Caffeine Use: Reports: Coffee Caffeine Use Comment: Minimal ED ROS GENERAL - Review of Systems Review Of Systems: See Below Constitutional: Reports: Weakness, Decreased Appetite, Weight Gain HEENT: Reports: Other (mouth feels dry) Respiratory: Reports: Other (orthopnea) Cardiovascular: Reports: Dyspnea on Exertion, Edema, Orthopnea Endocrine: Reports: No Symptoms GI/Abdominal: Reports: Decreased Appetite, Distension : Reports: Dysuria Musculoskeletal: Reports: Other (gen weakness) Skin: Reports: No Symptoms, Wound (right foot, plantar aspect. ) Neurological: Reports: Difficulty Walking, Weakness, Gait Disturbance Psychiatric: Reports: No Symptoms Hematologic/Lymphatic: Reports: No Symptoms Immunologic: Reports: No Symptoms ED EXAM, NEURO - Physical Exam Exam: See Below Exam Limited By: Physical Impairment General Appearance: Lethargic, Moderate Distress, Thin Eye Exam: Bilateral Eye: Normal Inspection Ears: Normal External Exam Nose: Normal Inspection, Normal Mucosa, No Blood Throat/Mouth: Normal Lips, Normal Voice, No Airway Compromise, Other (dry mucosal membrane) Head Exam: Atraumatic, Normocephalic Neck: Normal Inspection, Supple, Non-Tender, Full Range of Motion Respiratory/Chest: No Respiratory Distress, Lungs Clear, Normal Breath Sounds Cardiovascular: Regular Rate, Rhythm (100% paced rhythm), JVD GI/Abdominal: Distended, Abnormal Bowel Sounds, Hepatomegaly (Female) Exam: Deferred Rectal (Female) Exam: Deferred Neurological: Oriented x 3, Difficulty Walking Back Exam: Normal Inspection, Decreased Range of Motion Extremities: Pedal Edema, Slow Capillary Refill, Leg Pain, Limited Range of Motion, Other (wound right foot, decrease ROM of right shoulder ) Psychiatric: Normal Affect, Normal Mood Skin Exam: Warm, Dry, Normal Color, No Rash, Wound/Incision (right foot ) EKG INTERPRETATION EKG Date: 02/07/19 Time: 02:45 Rhythm: Other (100% paced rhytm) Rate (Beats/Min): 81 [place]: LAD-Left [place] Deviation P-Wave: Absent QRS: LBBB ST-T: Normal QT: Prolonged Comparison: NA - No Prior EKG Course - Vital Signs Text/Narrative:: 68 y.o.w.f with multiple medical issues, including Cardiomegaly, CHF, lymphedema , abd. distension, came by EMS to the ED because Pt could not up from the toilet seat by herself. Pt is lethargic and not able to give a HPI. No N/V/D. No Chest pain no other acute medical issues. BP 86/43 Pulse Temp 36.6 RR 22 Pulse ox 100% on RA Pulse 109. No medication list is available. PE: Lethargic 68 y.o.w.f with with multiple medical issues including gen weakness, unable to ambulate. Imaging: CXR: Cardiomegaly, alexa in acute Heartfailure Labs: CBC: WBC 16.7 reminder neg. BMP: Na 132, K 3.1 INR, 7.1 BUN 89 Cr. 1.9 GFR 26 Alb 3.7 Lactic acid 1.7 TB 2.1 DB 1.05 Glc 171 Impression: CHF, CRI, elevated liver enzymes. lethargy, gen weakness, 100% paced. Anasarca, poor healing wound right heal. Fritz lymphedema of lower extremities, hypokalemia, hyponatremia, hypetherapeutic INR level. 3.55am Consultation:Dr. Mejia, Hospitalist. [place] [facility]: Will accept the patient only if we do not have a M/S room with telemetry. Pt does not need to go to ICU Reexam: Pt vitals remained stable. As per nurse, we have a tele room and a nurse. Plan: Admit to tele inpatient. 7.10 am: Pt went into resp arrest, was intubated, CPR was applied, epi was given pulse came back, BP was 120/81 pulse 91. pt was spont breathing 100%, was sedated with rocuronium 7.30 am: [facility] was called: Will arrange ICU Ambulance to pick the patient up at [place] as soon the weather clears up 7.25 am: Consultation[facility]IGUE[facility] soon as she made her way up to [place]. 7.40 am: Family was updated Last Recorded V/S: Last Vital Signs Temp 37.4 C 12/22/18 04:30 Pulse 82 12/22/18 02:30 Resp 24 H 12/22/18 04:30 BP 127/63 12/22/18 04:30 Pulse Ox 96 12/22/18 04:30 - Orders/Labs/Meds Orders: Active Orders 24 hr Category Date Time Status Chest 1V Frontal [CR] Stat Exams 12/22/18 03:47 Taken AMMONIA, PLASMA Stat Lab 12/22/18 02:40 Received Sodium Chloride 0.9% [Saline Flush] Med 12/22/18 03:53 Active 10 ml FLUSH ASDIRECTED PRN Peripheral IV Insertion Adult [OM.PC] Routine Oth 12/22/18 03:53 Ordered EKG 12 Lead [EK] Routine Ther 12/22/18 02:34 Ordered Medication Orders Sodium Chloride (Normal Saline) 250 mls @ 100 mls/hr IV ASDIRECTED DESMOND Vancomycin HCl 1 gm/ Sodium (Chloride) 250 mls @ 167 mls/hr IV ONETIME ONE Stop: 12/22/18 10:15 Sodium Chloride (Saline Flush) 10 ml FLUSH ASDIRECTED PRN PRN Reason: Keep Vein Open Last Admin: 12/22/18 04:30 Dose: 10 ml Labs: Laboratory Tests 12/22/18 12/22/18 12/22/18 Range/Units 02:40 02:40 02:40 WBC 16.7 H (4.5-12.0) X10-3/uL RBC 3.91 (3.23-5.20) x10(6)uL Hgb 11.9 D (11.5-15.5) g/dL Hct 36.0 D (30.0-51.3) % MCV 92.0 (80-96) fL MCH 30.5 (27.7-33.6) pg MCHC 33.1 (32.2-35.4) g/dL RDW 13.7 (11.5-15.5) % Plt Count 189 (125-369) X10(3)uL MPV 8.3 (7.4-10.4) fL Add Manual Diff Yes Neutrophils % (Manual) 80 (46-82) % Band Neutrophils % 7 H (0-6) % Lymphocytes % (Manual) 6 L (13-37) % Monocytes % (Manual) 5 (4-12) % Eosinophils % (Manual) 1 (0-5) % Basophils % (Manual) 1 (0-2) % PT (8.7-11.1) INR (0.89-1.13) APTT (24.4-33.2) SECONDS Sodium 131 L (135-145) mmol/L Potassium 3.1 L D (3.5-5.3) mmol/L Chloride 94 L D (100-110) mmol/L Carbon Dioxide 24 (21-32) mmol/L BUN 89 H D (7-18) mg/dL Creatinine 1.9 H (0.55-1.02) mg/dL Est Cr Clr Drug Dosing TNP Estimated GFR (MDRD) 26 L (>60) BUN/Creatinine Ratio 46.8 H (9-20) Glucose 171 H D (80-116) mg/dL Lactic Acid (0.4-2.2) mmol/L Calcium 9.5 (8.6-10.2) mg/dL Magnesium 2.0 (1.8-2.5) mg/dL Total Bilirubin (0.1-1.3) mg/dL Direct Bilirubin (0.10-0.20) mg/dL AST (5-25) IU/L ALT (12-36) U/L Alkaline Phosphatase (56-112) IU/L Creatine Kinase 288 H* (60-160) IU/L NT-Pro-B Natriuret Pep (<=125) pg/mL Total Protein (6.0-8.0) g/dL Albumin (3.2-4.6) g/dL 12/22/18 12/22/18 12/22/18 Range/Units 02:40 02:40 02:40 WBC (4.5-12.0) X10-3/uL RBC (3.23-5.20) x10(6)uL Hgb (11.5-15.5) g/dL Hct (30.0-51.3) % MCV (80-96) fL MCH (27.7-33.6) pg MCHC (32.2-35.4) g/dL RDW (11.5-15.5) % Plt Count (125-369) X10(3)uL MPV (7.4-10.4) fL Add Manual Diff Neutrophils % (Manual) (46-82) % Band Neutrophils % (0-6) % Lymphocytes % (Manual) (13-37) % Monocytes % (Manual) (4-12) % Eosinophils % (Manual) (0-5) % Basophils % (Manual) (0-2) % PT 68.1 H* (8.7-11.1) INR 7.16 H* (0.89-1.13) APTT 38.3 H (24.4-33.2) SECONDS Sodium (135-145) mmol/L Potassium (3.5-5.3) mmol/L Chloride (100-110) mmol/L Carbon Dioxide (21-32) mmol/L BUN (7-18) mg/dL Creatinine (0.55-1.02) mg/dL Est Cr Clr Drug Dosing Estimated GFR (MDRD) (>60) BUN/Creatinine Ratio (9-20) Glucose (80-116) mg/dL Lactic Acid 1.7 (0.4-2.2) mmol/L Calcium (8.6-10.2) mg/dL Magnesium (1.8-2.5) mg/dL Total Bilirubin 2.1 H (0.1-1.3) mg/dL Direct Bilirubin 1.05 H (0.10-0.20) mg/dL AST 43 H D (5-25) IU/L ALT 34 D (12-36) U/L Alkaline Phosphatase 151 H (56-112) IU/L Creatine Kinase (60-160) IU/L NT-Pro-B Natriuret Pep (<=125) pg/mL Total Protein 7.5 (6.0-8.0) g/dL Albumin 3.7 (3.2-4.6) g/dL 12/22/18 Range/Units 02:40 WBC (4.5-12.0) X10-3/uL RBC (3.23-5.20) x10(6)uL Hgb (11.5-15.5) g/dL Hct (30.0-51.3) % MCV (80-96) fL MCH (27.7-33.6) pg MCHC (32.2-35.4) g/dL RDW (11.5-15.5) % Plt Count (125-369) X10(3)uL MPV (7.4-10.4) fL Add Manual Diff Neutrophils % (Manual) (46-82) % Band Neutrophils % (0-6) % Lymphocytes % (Manual) (13-37) % Monocytes % (Manual) (4-12) % Eosinophils % (Manual) (0-5) % Basophils % (Manual) (0-2) % PT (8.7-11.1) INR (0.89-1.13) APTT (24.4-33.2) SECONDS Sodium (135-145) mmol/L Potassium (3.5-5.3) mmol/L Chloride (100-110) mmol/L Carbon Dioxide (21-32) mmol/L BUN (7-18) mg/dL Creatinine (0.55-1.02) mg/dL Est Cr Clr Drug Dosing Estimated GFR (MDRD) (>60) BUN/Creatinine Ratio (9-20) Glucose (80-116) mg/dL Lactic Acid (0.4-2.2) mmol/L Calcium (8.6-10.2) mg/dL Magnesium (1.8-2.5) mg/dL Total Bilirubin (0.1-1.3) mg/dL Direct Bilirubin (0.10-0.20) mg/dL AST (5-25) IU/L ALT (12-36) U/L Alkaline Phosphatase (56-112) IU/L Creatine Kinase (60-160) IU/L NT-Pro-B Natriuret Pep 03387 H* (<=125) pg/mL Total Protein (6.0-8.0) g/dL Albumin (3.2-4.6) g/dL Meds: Medications Generic Name Dose Route Start Last Admin Trade Name Freq PRN Reason Stop Dose Admin Sodium Chloride 250 mls @ 100 mls/hr 12/22/18 08:45 Normal Saline IV ASDIRECTED DESMOND Vancomycin HCl 1 gm/ Sodium 250 mls @ 167 mls/hr 12/22/18 08:46 Chloride IV 12/22/18 10:15 ONETIME ONE Sodium Chloride 10 ml 12/22/18 03:53 12/22/18 04:30 Saline Flush FLUSH 10 ml ASDIRECTED PRN Administration Keep Vein Open Discontinued Medications Generic Name Dose Route Start Last Admin Trade Name Cecilia PRN Reason Stop Dose Admin Midazolam HCl Confirm 12/22/18 08:01 Versed 1 Mg/Ml Administered 12/22/18 08:02 Dose 2 mg .ROUTE .STK-MED ONE Midazolam HCl 2 mg 12/22/18 08:44 Versed 1 Mg/Ml IVPUSH 12/22/18 08:45 ONETIME ONE Piperacillin Sod/Tazobactam Sod Confirm 12/22/18 07:55 Zosyn Administered 12/22/18 07:56 Dose 3.375 gm .ROUTE .STK-MED ONE Departure - Departure Time of Disposition: 05:03 Disposition: Admitted As Inpatient 65 Condition: Fair Clinical Impression: Weakness, CRI (chronic renal insufficiency) - Discharge Information - My Orders Last 24 Hours: My Active Orders 12/22/18 02:34 EKG 12 Lead [EK] Routine 12/22/18 02:40 AMMONIA, PLASMA Stat 12/22/18 03:47 Chest 1V Frontal [CR] Stat 12/22/18 03:53 Sodium Chloride 0.9% [Saline Flush] 10 ml FLUSH ASDIRECTED PRN Peripheral IV Insertion Adult [OM.PC] Routine - Assessment/Plan Last 24 Hours: My Active Orders 12/22/18 02:34 EKG 12 Lead [EK] Routine 12/22/18 02:40 AMMONIA, PLASMA Stat 12/22/18 03:47 Chest 1V Frontal [CR] Stat 12/22/18 03:53 Sodium Chloride 0.9% [Saline Flush] 10 ml FLUSH ASDIRECTED PRN Peripheral IV Insertion Adult [OM.PC] Routine
[2018-12-22] MEDS: Sodium Chloride 0.9% 10 ML Syringe FLUSH PRN ×13 (04:30→23:29)
[2018-12-22] MEDS ORDERED: EPINEPHrine 1:10,000 1 MG/10 ML Syringe IVPUSH PRN (07:25)
[2018-12-22] MEDS ORDERED: Sodium Chloride 0.9% 1,000 ML IV SCH (07:42)
[2018-12-22] MEDS ORDERED: Piperacillin/Tazobactam 2.25 GM in Sodium Chloride 0.9% 50 ML IV SCH ×2 (07:55→10:00)
[2018-12-22] MEDS ORDERED: Piperacillin/Tazobactam 3.375 GM in Sodium Chloride 0.9% 50 ML IV ONE (07:55)
[2018-12-22] MEDS ORDERED: Midazolam 1 MG/ML 2 ML SDV IVPUSH PRN (08:00)
[2018-12-22] MEDS ORDERED: Midazolam 1 MG/ML 2 ML SDV ONE ×2 (08:01→09:52)
[2018-12-22] MEDS ORDERED: Midazolam 1 MG/ML 2 ML SDV IVPUSH ONE ×2 (08:44→11:56)
[2018-12-22] MEDS: Midazolam 1 MG/ML 2 ML SDV IVPUSH PRN ×10 (08:51→23:28)
[2018-12-22] MEDS ORDERED: Lidocaine 2% 100 MG/5 ML Syringe ONE (09:44)
[2018-12-22] MEDS ORDERED: Rocuronium 100 MG/10 ML MDV IV ONE ×2 (09:44)
[2018-12-22] MEDS: Sodium Chloride 0.9% 250 ML IV SCH ×2 (10:00→11:12)
[2018-12-22] MEDS: Norepinephrine 4 MG in Dextrose 5% in Water 246 ML IV SCH ×2 (10:20)
[2018-12-22] MEDS ORDERED: Acetaminophen 650 MG Supp RECTAL PRN (11:01)
[2018-12-22] MEDS: NS + KCl 20mEq/L 1,000 ML IV SCH ×3 (11:20→23:07)
[2018-12-22] MEDS: fentaNYL 100 MCG/2 ML SDV IVPUSH PRN ×11 (11:31→23:47)
[2018-12-22] MEDS ORDERED: Pantoprazole 40 MG Vial IVPUSH SCH (12:00)
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
--- NOTE | 2018-12-22 13:08 | PCM.SN ---
- Free Text/Narrative Note: Anesthesia 12/22/2018 Time: 732 to 900 0945 to 1 RE: Emergency Intubation [[id number]] Ventilation assist and management [[id number]] I was called to the ICU for an emergency intubation on this patient. Upon arrival, she was manually ventilated with an Ambu-bag and CPR was being preformed. I then intubated her X 1 attempt with a Mac 3 blade inserting a # 7.0 ETT. I had BBSE with a positive EtCO2 return and the tube was secured at 22 cm to the lip. A CXR was done with good ETT placement. Total time was 732 to 740 Ventilation assist and Management was requested by the physician managing this patient. From 741 to 900 and 944 to 1020 I was managing her ventilation and sedation. Medication orders included Versed 1-2 mg IV every hour/PRN, Zemuron IV 30 mg bolus doses, 2% Lidocaine down the ETT for cough suppression and Fentanyl IV 50 mcg every hour/PRN. I frequently reassessed her breath sounds and ETT placed The intraoperative neuro tech and I set up the ventilator with parameters given including weaning of the O2 from 100% to 40% over time keeping the SpO2 greater-than 93%. I did suctioned the ETT X 1 early on without much return. She frequently overrides the rate setting of SIMV of 15 and coughs/agitation requiring sedation orders. However, after the sedation for comfort and ventilator control, her BP will drop into the systolics of 88-94. I talked to her managing physician and we agreed to start her on very low dose Nor-epi drip with very good results. I have had hourly calls about her status and needs. She is awaiting transfer to [place] but the weather is preventing it. The last visit her was resting quietly with SIMV ventilation at 40% FIO2, VSS, her breath sounds remain unchanged and it should be noted severe jugular distention without change and ventilator aspiration precautions of HOB elevated to 35 degrees [hypotension] has been done. She relatively stable. Total time was 115 minutes Stewart Willoughby CRNA, Lisa
[2018-12-22] MEDS: Piperacillin/Tazobactam 2.25 GM in Sodium Chloride 0.9% 50 ML IV SCH ×2 (14:30→20:26)
[2018-12-22] MEDS ORDERED: Gentamicin 40 MG/ML 2 ML Vial IV SCH (16:00)
[2018-12-23] MEDS: Midazolam 1 MG/ML 2 ML SDV IVPUSH PRN ×5 (00:30→07:05)
[2018-12-23] MEDS: Sodium Chloride 0.9% 10 ML Syringe FLUSH PRN ×8 (00:30→09:22)
[2018-12-23] MEDS: fentaNYL 100 MCG/2 ML SDV IVPUSH PRN ×6 (00:58→09:19)
[2018-12-23] MEDS: Piperacillin/Tazobactam 2.25 GM in Sodium Chloride 0.9% 50 ML IV SCH ×2 (02:08→09:10)
[2018-12-23] MEDS: Norepinephrine 4 MG in Dextrose 5% in Water 246 ML IV SCH ×2 (03:45)
[2018-12-23] MEDS: NS + KCl 20mEq/L 1,000 ML IV SCH (04:36)
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
--- NOTE | 2018-12-23 08:42 | CONS ---
DATE OF CONSULTATION: 12/22/2018 CHIEF COMPLAINT: Cardiac arrest. SUBJECTIVE: This is a 68-year-old female, who has a known history of congestive heart failure and valvular heart disease. She had been doing reasonably well at home until last night when she developed acute episode of weakness. She had been on the toilet seat, but was unable to get up by herself. The ambulance was subsequently summoned, and she is brought to the emergency room for evaluation. Her lab work initially showed a white count of 16,700, hemoglobin is 11.9, platelet count of 189,000. Other lab work showed a sodium of 131, potassium 3.1, creatinine of 1.9, and BUN of 89. Glucose level is 171. Magnesium level of 2.0. Her CPK was elevated at 288. She did have an INR checked, which was noted to be 7.1. Her liver function tests were mildly elevated with an alkaline phosphatase of 151 and AST of 43. The patient was initially admitted to the floor on telemetry. She subsequently developed symptoms of decreased level of consciousness and subsequent cardiac arrest. She was noted to have an episode of V-tach initially and then had a cardiac arrest. She was resuscitated with CPR, as well as epinephrine, and moved to the intensive care unit. In talking with her family, it was noted that she had actually been reasonably stable up until her admission. She had noted that her INR had been fluctuating for the last week or two. She had been adjusting her warfarin per recommendations of the [facility] at [facility]. She had not had any significant fever or chills, and family denied any particular complaints of any GI symptoms. She does have a history of chronic kidney disease, as well as history of some chronic edema. She has had previous echocardiograms which have shown an EF of approximately 40%, but with significant valvular dysfunction. At the present time, the patient is intubated and not able to give any further history. The information was obtained from her and family. PAST MEDICAL HISTORY: Significant for her congestive heart failure and valvular heart disease. She has had previous pacemaker placement. She has had problems with lymphedema. There is history of atrial fibrillation, as well as history of sick sinus syndrome. In talking with family, it is noted that the patient did have dialysis several months ago, and subsequently renal function did improve. She does have a history of diabetes, as well as history of anemia. PAST SURGICAL HISTORY: Includes mitral valve replacement, tricuspid valve repair, Maze operation for atrial fibrillation, and chronic anticoagulation. She has had previous cholecystectomy, hysterectomy, as well as previous breast biopsy and lumpectomy. SOCIAL HISTORY: The patient has been living at home with her . REVIEW OF SYSTEMS: Unobtainable. On examination today, blood pressure has been fluctuating a bit. She did receive Versed to help her to relax while intubated. Blood pressure did drop with this and subsequently started on norepinephrine to maintain blood pressure. She has received Zosyn, as well as vancomycin. She is scheduled to be started on gentamicin as well. She currently is intubated and recent ABGs show pH is 7.38 with a pCO2 of 39, pO2 of 104, bicarbonate 23, oxygen saturation is 98% on 50%. LABORATORY DATA: Followup lab work today reveals the potassium is down to 2.9, creatinine of 2.0 with a BUN of 86, glucose is 200. Troponin is mildly elevated at 0.10. ProBNP is noted to be significantly elevated on admission of 14,268. Urinalysis was unremarkable. Repeat INR today was noted to be 6.1. Her repeat white count today is up to 22,200, hemoglobin 12.3, platelet count 174,000. PHYSICAL EXAMINATION: VITAL SIGNS: On examination, blood pressure now is ranging between 108 and 115 systolic, pulse of 80, temp is 99.6, but had been up to 101.2 earlier in the day. GENERAL: She is lying quietly in the bed. She had been able to open her eyes, but at this point is not. CARDIOVASCULAR: Reveals regular rhythm with grade 2 to 3/6 systolic murmur present. LUNGS: Appear relatively clear. ABDOMEN: Soft and nontender. EXTREMITIES: Reveals 1+ edema with some chronic skin changes of the lower extremities. Peripheral pulses in the feet appear intact. She is noted to have some increased JVD present in the neck. IMAGING DATA: Lab work is as noted above. Chest x-ray done today's shows findings that would suggest some volume overload, as well as cardiomegaly. ASSESSMENT: 1. Cardiac arrest. At this point in time, her vital signs have stabilized a bit. She is requiring some pressor agents to maintain blood pressure, but otherwise appears to be reasonably stable. Rhythm appears stable as well. She will have a repeat ABG done later in the afternoon, as well as start potassium replacement. This should be repeated later today as well. She did get 2 units of fresh frozen plasma and will be repeating lab for this as well. 2. Leukocytosis with fever. The patient has been started on gentamicin, as well as Zosyn. She has also received vancomycin. She has had blood cultures obtained. 3. Coagulopathy. She did receive 2 units of fresh frozen plasma as noted above. Need to watch for signs of bleeding, given her INR, as well as receiving CPR. 4. Congestive heart failure with valvular heart disease. At this point, she continues to show some mild findings that would suggest congestive heart failure on chest x-ray. We will continue to monitor this. 5. Respiratory arrest. She is on ventilator, and ABGs actually look quite good at this point in time. I would suggest rechecking these again later today. 6. GI tract. I would suggest starting her on an IV proton pump inhibitor to protect her GI tract, given her elevated INR. 7. Electrolytes and renal function. Potassium is low. I would go ahead and replace the potassium and recheck her potassium later today. Kidney function also continues to be suggestive of chronic kidney disease, but this appears reasonably baseline, compared to previous results that she has had as an outpatient. 8. For now, we will continue supportive care as noted above. I would agree with need to transfer her as soon as weather is reasonably improved, so that she can be safely transferred to [facility]. These arrangements appear to have already been made. Thanks for allowing me to see the patient. /[id number] LUIS/MARCIAL
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
[2018-12-23 09:51] VITALS: BP 108/65
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
--- NOTE | 2018-12-27 09:12 | PCM.SN ---
- Free Text/Narrative Note: ADDENDUM Anesthesia 12/27/2018 Time: 908 I gave 3 doses of Zemuron 30 mg's each during my time present. I used 2 vials. LAVONNE Lozano CRNA
== END 2018-12-23 09:45 | DRG 871 ==
LOC: FB.ED 02:24 → FB.MS 04:21 → FB.ICU 07:25
PROVIDERS: ADMIT Family Medicine; ATTEND Family Medicine
PROC: 0BH17EZ Insertion of Endotracheal Airway into Trachea, Via Natural or Artificial Opening (ICD-10-PCS; principal; 2018-12-22)
PROC: 5A1935Z Respiratory Ventilation, Less than 24 Consecutive Hours (ICD-10-PCS; 2018-12-22)
PROC: 5A12012 Performance of Cardiac Output, Single, Manual (ICD-10-PCS; 2018-12-22)
PROC: 30233L1 Transfusion of Nonautologous Fresh Plasma into Peripheral Vein, Percutaneous Approach (ICD-10-PCS; 2018-12-22)
DX: R53.1 Weakness (principal); R50.9 Fever, unspecified; A41.9 Sepsis, unspecified organism; I46.9 Cardiac arrest, cause unspecified; I46.2 Cardiac arrest due to underlying cardiac condition; I21.4 Non-ST elevation (NSTEMI) myocardial infarction; I13.0 Hypertensive heart and chronic kidney disease with heart failure and stage 1 through stage 4 chronic kidney disease, or unspecified chronic kidney disease; I50.22 Chronic systolic (congestive) heart failure; E87.1 Hypo-osmolality and hyponatremia; I47.2 Ventricular tachycardia; N17.9 Acute kidney failure, unspecified; Z75.1 Person awaiting admission to adequate facility elsewhere; E11.22 Type 2 diabetes mellitus with diabetic chronic kidney disease; E11.319 Type 2 diabetes mellitus with unspecified diabetic retinopathy without macular edema; N18.3 Chronic kidney disease, stage 3 (moderate); I48.91 Unspecified atrial fibrillation; Z95.2 Presence of prosthetic heart valve; I89.0 Lymphedema, not elsewhere classified; E87.6 Hypokalemia; R79.1 Abnormal coagulation profile; R79.89 Other specified abnormal findings of blood chemistry; Z79.84 Long term (current) use of oral hypoglycemic drugs; E78.5 Hyperlipidemia, unspecified; Z95.0 Presence of cardiac pacemaker; M19.90 Unspecified osteoarthritis, unspecified site; Z85.3 Personal history of malignant neoplasm of breast; Z79.01 Long term (current) use of anticoagulants; Z79.899 Other long term (current) drug therapy; Z88.8 Allergy status to other drugs, medicaments and biological substances; I49.5 Sick sinus syndrome; E07.9 Disorder of thyroid, unspecified; D64.9 Anemia, unspecified; F43.9 Reaction to severe stress, unspecified; I51.7 Cardiomegaly; Z90.710 Acquired absence of both cervix and uterus; Z90.49 Acquired absence of other specified parts of digestive tract
CPT/HCPCS: 36415; 36430; 36600; 71045; 80048; 80053; 80076; 81001; 82140; 82550; 82803; 83605; 83735; 83880; 84484; 85025; 85610; 85730; 87040; 93005; 94002; 94003; 99285; C9113; J0171; J1580; J2001; J2250; J2543; J3010; J3370; J3480; J7030; J7050; J7060; P9017